=== PATIENT | female | born 1935 | race Caucasian/White ===

== ENCOUNTER → 2016-11-02 | Outpatient (CLI) | payer MEDICARE, OTHER, MEDICAID ==
[~2016-11-02] MED LIST: AC500T PO; ACID1TAB PO; ASCO100083 PO; ASCO500T20 PO; ASP325T; ASPI-875 PO; ATRV10T PO; AZIT250T81 PO; Albuterol Sulfate INH; C250T PO; CALC-656 PO; CALC-687 PO; CALC-80 PO; CEFD300C3 PO; CEPH500C PO; CETI10CA PO; CETI1TAB61 PO; CHOL400T29 PO; CHOL400T40 PO; CLIN300C3 PO; COUMADIN; CPR500T PO; CTLP20T PO; CTRZ10T; DABI150C PO; DABI150C5 PO; DABI75CA3 PO; DGX.25T PO; DILT120C PO; DILT120C54 PO; DILTIAZEM HCL TOP; DLT120CCR; FEXO180T84 PO; FISH OIL 1,2001 EAC1 PO; GARL200T PO; GARLIC 1000MG PO; HYDR-34 PO; HYDR-757 PO; IBUP-15 PO; LACT1CAP62 PO; LACT1CAP64 PO; LORA10TA7 PO; MEMA28CA PO; METO25TA PO; METR500T PO; MTR500T PO; MULT-963 PO; MULT1TAB63; OMG1KC; OMG1KC PO; PNT40TEC PO; POTA10CA43 PO; POTA10TA86 PO; SULF-222 PO; VALA500T4 PO; VITAMIN C 1000MG PO; WRF3T; [UNRECOGNIZED DRUG - CODE] PO; [UNRECOGNIZED DRUG - OTHER]; meclizine; pradaxa PO
[2016-11-02 08:04] LABS: BILIRUBIN,URINE NEGATIVE (NEGATIVE); KETONES,URINE 1+ (NEGATIVE); LEUKOCYTE ESTERASE ,URINE 1+ (NEGATIVE); NITRITE,URINE NEGATIVE (NEGATIVE); PH,URINE 5 (5-9); PROTEIN,URINE NEGATIVE (NEGATIVE); UROBILINOGEN,URINE 1 MG/DL (NORMAL)
[2016-11-02 08:19] LABS: CALCIUM OXALATE CRYSTALS,UR RARE /LPF; SQUAMOUS EPITHELIAL CELL,UR 25-50 /HPF
== END ==
LOC: CVS 07:54
PROVIDERS: ATTEND Family Medicine
DX: N39.0 Urinary tract infection, site not specified (principal)
CPT/HCPCS: 81000; 87088

== ENCOUNTER 2016-11-28 19:47 | Emergency (ER) | payer MEDICARE, OTHER, MEDICAID ==
[~2016-11-28] VITALS: Ht 152.4 cm; Wt 59.0 kg
--- NOTE | 2016-11-28 20:35 | Diagnostic Imaging Report ---
INDICATION: Fall with shoulder pain. Previous arthroplasty. FINDINGS: Humeral head component is in good position and in good alignment with the glenoid. Side plate with bone screws present on the humeral shaft with no evidence of hardware failure. There are no acute fractures. AC joints in good alignment with degenerative changes. IMPRESSION: Postoperative changes right shoulder with arthroplasty present. No dislocations or acute bony abnormalities. Dictated by: Dictated on workstation # [id number]
--- NOTE | 2016-11-28 21:57 | ED Fall/Injury ---
General Chief Complaint: Upper Extremity Stated Complaint: FALL Nursing Triage Note: PT TO ED 7 W/ C/O RT SHOULDER PAIN ONSET AFTER FALLING AT [facility] DINING ROOM. PER STAFF, UNWITNESS FALL AIDE HAD HER BACK TO PT WHILE SHE WAS ON THE COMPUTER. NO OTHER C/O VOICED Allergies and Home Medications Allergies Coded Allergies: No Known Drug Allergies (Verified , 12/08/14) Home Medications Acidophilus/Bulgaricus 1 Tab.chew Tab.chew, 1 TAB.CHEW PO Q8H, #30 Prescribed by: SOWMYA LOZA on 12/14/14927 Ascorbic Acid 250 Mg Tab, 250 MG PO DAILY for 0 Days Prescribed by: AMBER BLOOM on 12/08/141819 Atorvastatin Calcium 10 Mg Tablet, 10 MG PO HS, (Reported) Azithromycin 250 Mg Tablet, 250 MG PO DAILY, #5 Prescribed by: SOWMYA LOZA on 12/14/14927 Cefdinir 300 Mg Capsule, 1 EACH PO BID, #14 Prescribed by: SOWMYA LOZA on 12/14/14927 Cholecalciferol 400 Unit Tablet, 400 UNIT PO DAILY for 0 Days Prescribed by: AMBER BLOOM on 12/08/141819 Citalopram Hydrobromide 20 Mg Tab, 20 MG PO DAILY, (Reported) Dabigatran Etexilate Mesylate 150 Mg Capsule, 150 MG PO BID, #0 Prescribed by: SOWMYA LOZA on 12/14/14927 Digoxin 0.25 Mg Tab, 0.25 MG PO DAILY, (Reported) Diltiazem Hcl 120 Mg Cap.sr.24h, 120 MG PO DAILY, (Reported) Hydrocodone Bit/Acetaminophen 1 Ea Tablet, 1-2 EA PO Q6H PRN for PAIN, #30 Prescribed by: SOWMYA LOZA on 12/14/14927 Lactobacillus Acidophilus 1 Each Capsule, 1 EACH PO DAILY for 0 Days Prescribed by: AMBER BLOOM on 12/08/141819 Metoprolol Succinate 25 Mg Tab.sr.24h, 25 MG PO DAILY, (Reported) Multivitamin 1 Each Tablet, 1 TAB PO DAILY, (Reported) [place]-3 Fatty Acids/Fish Oil 1 Each Capsule, 1,200 MG PO DAILY, (Reported) Pantoprazole Sod 40 Mg Tab, 40 MG PO BID@07,17, #60 Prescribed by: SOWMYA LOZA on 10/09/14 0909 Potassium Chloride 10 Meq Tablet.sa, 10 MEQ PO DAILY, (Reported) Valacyclovir Hcl 500 Mg Tablet, 500 MG PO DAILY, (Reported) [Albuterol Sulfate] 2.5 MG/3 ML NEBU, 2.5 MG INH RTTID, #21 Prescribed by: SOWMYA LOZA on 12/14/14 0928 Past Dtbuedh-Cclene-Qulkww Hx Patient Social History Alcohol Use: Denies Use Recreational Drug Use: No Smoking Status: Never a Smoker Type Used: Cigarettes 2nd Hand Smoke Exposure: No Recent Foreign Travel: No Contact w/Someone Who Travel: No Recent Infectious Disease Expo: No Recent Hopitalizations: No Immunizations Up To Date Date of Pneumonia Vaccine: Feb 02, 2014 Date of Influenza Vaccine: Mar 28, 2014 Seasonal Allergies Seasonal Allergies: Yes Surgeries HX Surgeries: Yes (CATARACTS, SHOULDER, ARM SURGERY) Surgeries: Gallbladder, Orthopedic Respiratory Hx Respiratory Disorders: Yes (SHOULD WEAR HOME O2 BUT DOESN'T) Cardiovascular Hx Cardiac Disorders: Yes Cardiac Disorders: Atrial Fibrillation, Hypertension Neurological Hx Neurological Disorders: Yes Neurological Disorders: Dementia Reproductive System Hx Reproductive Disorders: No Sexually Transmitted Disease: No HIV/AIDS: No Female Reproductive Disorders: Denies Genitourinary Hx Genitourinary Disorders: No Gastrointestinal Hx Gastrointestinal Disorders: Yes (GALLBLADDER REMOVED 2008) Gastrointestinal Disorders: C-Diff Musculoskeletal Hx Musculoskeletal Disorders: Yes (FX DOMI) Musculoskeletal Disorders: Arthritis, Fractures Endocrine Hx Endocrine Disorders: No HEENT HX ENT Disorders: Yes (CATARACTS REMOVED 2011) HEENT Disorders: Cataract Loss of Vision: Denies Hearing Impairment: Hard of Hearing Cancer Hx Cancer: Yes Cancer: Melanoma Psychosocial Hx Psychiatric Problems: Yes (DEPRESSION FOLLOWING LOSS OF ) Behavioral Health Disorders: Depression Integumentary HX Skin/Integumentary Disorder: Yes (SHINGLES) Blood Transfusions Hx Blood Disorders: No Adverse Reaction to a Blood Tr: No Family Medical History Significant Family History: Heart Disease, Cancer, CAD Over 55 Years Old, Hypertension Family Medial History: Arthritis (DAUGHTER) Cancer 09 BROTHER (LUNG CANCER) Completed stroke (DAUGHTER ) Family history: Cardiovascular disease 03 FATHER 03 MOTHER Family history: Diabetes mellitus 03 MOTHER Headache disorder Hypercholesterolemia (DAUGHTER ) Hypertension (DAUGHTER ) Infertility (DAUGHTER ) Myocardial infarction 03 FATHER Severe allergy (DAUGHTER ) Physical Exam Vital Signs Vital Sign - Last 12Hours 11/28/16 19:48 Temp 97.4 Pulse 63 Resp 16 B/P (MAP) 102/59 Pulse Ox 94 O2 Delivery Room Air Capillary Refill : Less Than 3 Seconds Progress/Results/Core Measures Results/Orders My Orders Orders - GLORIA ERNST DO Shoulder, Right, 3 Views (11/28/16 20:06) Vital Signs/I&O Vital Sign - Last 12Hours 11/28/16 19:48 Temp 97.4 Pulse 63 Resp 16 B/P (MAP) 102/59 Pulse Ox 94 O2 Delivery Room Air Blood Pressure Mean: 73 Departure Impression Impression: Primary Impression: Contusion of right shoulder Additional Impression: Fall Disposition: 01 HOME, SELF-CARE Condition: Stable Departure-Patient Inst. Decision time for Depature: 21:55 Referrals: SOWMYA LOZA MD (PCP/Family) Primary Care Physician Patient Instructions: Contusion (DC) Add. Discharge Instructions: All discharge instructions reviewed with patient and/or family. Voiced understanding. RECOMMEND 1000 mg OF TYLENOL EVERY 6 HOURS NEEDED FOR SHOULDER PAIN. GLORIA ERNST DO Nov 28, 2016 21:57
[2016-11-28] MEDS ORDERED: ACETAMINOPHEN 500 MG TAB (TYLENOL) ONE (22:22)
[2016-11-28 22:28] VITALS: BP 122/67
== END 2016-11-28 22:28 | disposition home or self-care (01) ==
LOC: EDUNIT# 19:47 → ER 19:48
DX: S40.011A Contusion of right shoulder, initial encounter (principal); I48.2 Chronic atrial fibrillation; I10 Essential (primary) hypertension; F03.90 Unspecified dementia, unspecified severity, without behavioral disturbance, psychotic disturbance, mood disturbance, and anxiety; W01.0XXA Fall on same level from slipping, tripping and stumbling without subsequent striking against object, initial encounter; Y92.009 Unspecified place in unspecified non-institutional (private) residence as the place of occurrence of the external cause; Y99.8 Other external cause status
CPT/HCPCS: 73030; 99283

== ENCOUNTER 2017-01-18 09:25 | Emergency (ER) | payer MEDICARE, OTHER, MEDICAID ==
[~2017-01-18] VITALS: Ht 157.5 cm; Wt 65.8 kg
[2017-01-18] MEDS ORDERED: NS IV 1000 ML 1,000 ML IV ONE (09:48)
[2017-01-18 10:09] LABS: BASOPHILS % (AUTO) 0 % (0-10); EOSINOPHILS # (AUTO) 0.2 10^3/uL (0.0-0.3); EOSINOPHILS % (AUTO) 2 % (0-10); LYMPHOCYTES # (AUTO) 2.1 X 10^3 (1.0-4.0); LYMPHOCYTES % (AUTO) 18 % (12-44); MEAN CORPUSCULAR HEMOGLOBIN 29 PG (25-34); MEAN CORPUSCULAR HGB CONC 31 G/DL (32-36); MEAN CORPUSCULAR VOLUME 96 FL (80-99); MEAN PLATELET VOLUME 9.8 FL (7.4-10.4); MONOCYTES # (AUTO) 0.9 X 10^3 (0.0-1.0); MONOCYTES % (AUTO) 7 % (0-12); NEUTROPHILS # (AUTO) 8.5 X 10^3 (1.8-7.8); NEUTROPHILS % (AUTO) 73 % (42-75); PLATELET COUNT 302 10^3/uL (130-400); RED BLOOD COUNT 3.44 10^6/uL (4.35-5.85); RED CELL DISTRIBUTION WIDTH 14.5 % (10.0-14.5); WHITE BLOOD COUNT 11.7 10^3/uL (4.3-11.0)
[2017-01-18 10:30] LABS: ALANINE AMINOTRANSFERASE 8 U/L (0-55); ALBUMIN 3.7 GM/DL (3.2-4.5); ANION GAP 9 MMOL/L (5-14); ASPARTATE AMINO TRANSFERASE 9 U/L (5-34); BILIRUBIN,TOTAL 0.3 MG/DL (0.1-1.0); BLOOD UREA NITROGEN 33 MG/DL (7-18); BUN/CREATININE RATIO 41; CALCIUM 8.8 MG/DL (8.5-10.1); CARBON DIOXIDE 28 MMOL/L (21-32); CHLORIDE 107 MMOL/L (98-107); CREATININE SERUM 0.81 MG/DL (0.60-1.30); GFR ESTIMATED > 60; GLUCOSE 89 MG/DL (70-105); MAGNESIUM 2.3 MG/DL (1.8-2.4); POTASSIUM 4.2 MMOL/L (3.6-5.0); SODIUM 144 MMOL/L (135-145); TOTAL PROTEIN 6.1 GM/DL (6.4-8.2)
--- NOTE | 2017-01-18 10:40 | ED Fall/Injury ---
General Chief Complaint: Trauma-Non Activation Stated Complaint: FALL HIT BACK OF HEAD Nursing Triage Note: via [facility] staff reports pt had a fall at 0815. pt reported to staff at 0830 that she could not see. staff reports pt fell backwards and hit head on floor. pt denies loss of vision upon arrival but also has advanced dementia according to [facility] staff. Source: patient Exam Limitations: no limitations History of Present Illness Time seen by provider: 10:00 Initial Comments Here with fall at long term this morning. Staff reports that she fell backwards and hit her head. Apparently had a report of vision loss but none noted on arrival. Patient has advanced dementia and difficult exam and patient unable to provide any history. Arrives via wheelchair. Abrasion to posterior scalp. Occurred: this morning Severity: moderate Injuries/Pain Location: head Context: unknown Loss of Consciousness: no loss of consciousness Associated Symptoms (Fall): Confusion (chronic), No Nausea/Vomiting, No Shortness of Air, Vision Changes (reported but not reported now) Allergies and Home Medications Allergies Coded Allergies: No Known Drug Allergies (Verified , 12/08/14) Home Medications Acidophilus/Bulgaricus 1 Tab.chew Tab.chew, 1 TAB.CHEW PO Q8H, #30 Prescribed by: SOWMYA LOZA on 12/14/14927 Ascorbic Acid 250 Mg Tab, 250 MG PO DAILY for 0 Days Prescribed by: AMBER BLOOM on 12/08/14 182 Atorvastatin Calcium 10 Mg Tablet, 10 MG PO HS, (Reported) Azithromycin 250 Mg Tablet, 250 MG PO DAILY, #5 Prescribed by: SOWMYA LOZA on 12/14/14927 Cefdinir 300 Mg Capsule, 1 EACH PO BID, #14 Prescribed by: SOWMYA LOZA on 12/14/1428 Cholecalciferol 400 Unit Tablet, 400 UNIT PO DAILY for 0 Days Prescribed by: AMBER BLOOM on 12/08/14 182 Citalopram Hydrobromide 20 Mg Tab, 20 MG PO DAILY, (Reported) Dabigatran Etexilate Mesylate 150 Mg Capsule, 150 MG PO BID, #0 Prescribed by: SOWMYA LOZA on 12/14/14927 Digoxin 0.25 Mg Tab, 0.25 MG PO DAILY, (Reported) Diltiazem Hcl 120 Mg Cap.sr.24h, 120 MG PO DAILY, (Reported) Hydrocodone Bit/Acetaminophen 1 Ea Tablet, 1-2 EA PO Q6H PRN for PAIN, #30 Prescribed by: SOWMYA LOZA on 12/14/14 0928 Lactobacillus Acidophilus 1 Each Capsule, 1 EACH PO DAILY for 0 Days Prescribed by: AMBER BLOOM on 12/08/14 1820 Metoprolol Succinate 25 Mg Tab.sr.24h, 25 MG PO DAILY, (Reported) Multivitamin 1 Each Tablet, 1 TAB PO DAILY, (Reported) [place]-3 Fatty Acids/Fish Oil 1 Each Capsule, 1,200 MG PO DAILY, (Reported) Pantoprazole Sod 40 Mg Tab, 40 MG PO BID@07,17, #60 Prescribed by: SOWMYA LOZA on 10/09/14 0909 Potassium Chloride 10 Meq Tablet.sa, 10 MEQ PO DAILY, (Reported) Valacyclovir Hcl 500 Mg Tablet, 500 MG PO DAILY, (Reported) [Albuterol Sulfate] 2.5 MG/3 ML NEBU, 2.5 MG INH RTTID, #21 Prescribed by: SOWMYA LOZA on 12/14/1428 Constitutional: see HPI, No chills, No fever Eyes: See HPI Ears, Nose, Mouth, Throat: no symptoms reported Gastrointestinal: No diarrhea, No nausea, No vomiting Skin: no symptoms reported Psychiatric/Neurological: Headache Other Unable to complete review of systems due to advanced dementia. Past Fpcpsec-Dfqkcp-Ubaxth Hx Patient Social History Alcohol Use: Denies Use Recreational Drug Use: No Smoking Status: Unknown if Ever Smoked Type Used: Cigarettes 2nd Hand Smoke Exposure: No Recent Foreign Travel: No Contact w/Someone Who Travel: No Recent Infectious Disease Expo: No Recent Hopitalizations: No Immunizations Up To Date Date of Pneumonia Vaccine: Feb 02, 2014 Date of Influenza Vaccine: Mar 28, 2014 Seasonal Allergies Seasonal Allergies: Yes Surgeries HX Surgeries: Yes (CATARACTS, SHOULDER, ARM SURGERY) Surgeries: Gallbladder, Orthopedic Respiratory Hx Respiratory Disorders: Yes (SHOULD WEAR HOME O2 BUT DOESN'T) Cardiovascular Hx Cardiac Disorders: Yes Cardiac Disorders: Atrial Fibrillation, Coronary Artery Disease, High Cholesterol, Hypertension Neurological Hx Neurological Disorders: Yes Neurological Disorders: Dementia Reproductive System Hx Reproductive Disorders: No Sexually Transmitted Disease: No HIV/AIDS: No Female Reproductive Disorders: Denies Genitourinary Hx Genitourinary Disorders: No Gastrointestinal Hx Gastrointestinal Disorders: Yes (GALLBLADDER REMOVED 2008) Gastrointestinal Disorders: Gastroesophageal Reflux, C-Diff Musculoskeletal Hx Musculoskeletal Disorders: Yes (FX DOMI) Musculoskeletal Disorders: Arthritis, Fractures Endocrine Hx Endocrine Disorders: No HEENT HX ENT Disorders: Yes (CATARACTS REMOVED 2011) HEENT Disorders: Cataract Loss of Vision: Denies Hearing Impairment: Hard of Hearing Cancer Hx Cancer: Yes Cancer: Melanoma Psychosocial Hx Psychiatric Problems: Yes (DEPRESSION FOLLOWING LOSS OF ) Behavioral Health Disorders: Depression Integumentary HX Skin/Integumentary Disorder: Yes (SHINGLES) Blood Transfusions Hx Blood Disorders: No Adverse Reaction to a Blood Tr: No Reviewed Nursing Assessment Reviewed/Agree w Nursing PMH: Yes Family Medical History Significant Family History: Heart Disease, Cancer, CAD Over 55 Years Old, Hypertension Other Per records. Family Medial History: Arthritis (DAUGHTER) Cancer 09 BROTHER (LUNG CANCER) Completed stroke (DAUGHTER ) Family history: Cardiovascular disease 03 FATHER 03 MOTHER Family history: Diabetes mellitus 03 MOTHER Headache disorder Hypercholesterolemia (DAUGHTER ) Hypertension (DAUGHTER ) Infertility (DAUGHTER ) Myocardial infarction 03 FATHER Severe allergy (DAUGHTER ) Physical Exam Vital Signs Vital Sign - Last 12Hours 01/18/17 10:22 Temp 97.5 Pulse 69 Resp 18 B/P (MAP) 85/33 Pulse Ox 98 O2 Delivery Room Air Capillary Refill : Less Than 3 Seconds General Appearance: WD/WN, no apparent distress HEENT: PERRL/EOMI, pharynx normal Neck: full range of motion, supple Cardiovascular: regular rate, rhythm, no murmur Respiratory: lungs clear, normal breath sounds Gastrointestinal: non tender, soft Back: normal inspection, no CVA tenderness, no vertebral tenderness Extremities: non-tender, normal inspection Neurologic/Psychiatric: alert, other (follows some commands. Eyes open and and tracks to examiner. At baseline.) Skin: normal color, warm/dry, other (no obvious injury or skin breakdown to the back of the head. There is scalp hematoma noted posteriorly.) Roddy Coma Score Best Eye Response: (4) Open Spontaneously Best Verbal Response: (4) Confused Conversation (baseline) Best Motor Response: (6) Obeys Commands Progress/Results/Core Measures Results/Orders Lab Results Laboratory Tests Test 01/18/17 10:01 01/18/17 11:19 Range/Units White Blood Count 11.7 H 4.3-11.0 10^3/uL Red Blood Count 3.44 L 4.35-5.85 10^6/uL Hemoglobin 10.1 L 11.5-16.0 G/DL Hematocrit 33 L 35-52 % Mean Corpuscular Volume 96 80-99 FL Mean Corpuscular Hemoglobin 29 25-34 PG Mean Corpuscular Hemoglobin Concent 31 L 32-36 G/DL Red Cell Distribution Width 14.5 10.0-14.5 % Platelet Count 302 130-400 10^3/uL Mean Platelet Volume 9.8 7.4-10.4 FL Neutrophils (%) (Auto) 73 42-75 % Lymphocytes (%) (Auto) 18 12-44 % Monocytes (%) (Auto) 7 0-12 % Eosinophils (%) (Auto) 2 0-10 % Basophils (%) (Auto) 0 0-10 % Neutrophils # (Auto) 8.5 H 1.8-7.8 X 10^3 Lymphocytes # (Auto) 2.1 1.0-4.0 X 10^3 Monocytes # (Auto) 0.9 0.0-1.0 X 10^3 Eosinophils # (Auto) 0.2 0.0-0.3 10^3/uL Basophils # (Auto) 0.0 0.0-0.1 10^3/uL Sodium Level 144 135-145 MMOL/L Potassium Level 4.2 3.6-5.0 MMOL/L Chloride Level 107 98-107 MMOL/L Carbon Dioxide Level 28 21-32 MMOL/L Anion Gap 9 5-14 MMOL/L Blood Urea Nitrogen 33 H 7-18 MG/DL Creatinine 0.81 0.60-1.30 MG/DL Estimat Glomerular Filtration Rate > 60 BUN/Creatinine Ratio 41 Glucose Level 89 70-105 MG/DL Calcium Level 8.8 8.5-10.1 MG/DL Magnesium Level 2.3 1.8-2.4 MG/DL Total Bilirubin 0.3 0.1-1.0 MG/DL Aspartate Amino Transf (AST/SGOT) 9 5-34 U/L Alanine Aminotransferase (ALT/SGPT) 8 0-55 U/L Alkaline Phosphatase 42 40-136 U/L Total Protein 6.1 L 6.4-8.2 GM/DL Albumin 3.7 3.2-4.5 GM/DL Digoxin Level 1.96 0.80-2.00 NG/ML Urine Color YELLOW Urine Clarity CLEAR Urine pH 5 5-9 Urine Specific Dix 1.020 1.016-1.022 Urine Protein 1+ H NEGATIVE Urine Glucose (UA) NEGATIVE NEGATIVE Urine Ketones NEGATIVE NEGATIVE Urine Nitrite NEGATIVE NEGATIVE Urine Bilirubin 1+ H NEGATIVE Urine Urobilinogen 1 NORMAL MG/DL Urine Leukocyte Esterase 1+ H NEGATIVE Urine RBC (Auto) NEGATIVE NEGATIVE Urine RBC NONE /HPF Urine WBC RARE /HPF Urine Squamous Epithelial Cells RARE /HPF Urine Crystals NONE /LPF Urine Bacteria NEGATIVE /HPF Urine Casts PRESENT /LPF Urine Hyaline Casts 25-50 H /LPF Urine Mucus SMALL H /LPF Urine Culture Indicated NO My Orders Orders - JHON MATTHEWS MD Cbc With Automated Diff (01/18/17 09:48) Comprehensive Metabolic Panel (01/18/17 09:48) Ct Head Wo (01/18/17 09:48) Saline Lock/Iv-Start (01/18/17 09:48) Monitor-Rhythm Ecg Trace Only (01/18/17 09:48) Ns Iv 1000 Ml (Sodium Chloride 0.9%) (01/18/17 09:48) Digoxin (01/18/17 09:48) Magnesium (01/18/17 09:48) Ua Culture If Indicated (01/18/17 09:48) Medications Given in ED Current Medications Medications Dose Ordered Sig/Katarzyna Route Start Time Stop Time Status Last Admin Dose Admin Sodium Chloride 1,000 ml @ 0 mls/hr Q0M ONCE IV 01/18/17 09:48 01/18/17 09:51 DC 01/18/17 10:01 0 MLS/HR Vital Signs/I&O Vital Sign - Last 12Hours 01/18/17 01/18/17 10:22 10:22 Temp 97.5 97.5 Pulse 69 69 Resp 18 16 B/P (MAP) 85/33 98/43 (61) Pulse Ox 98 94 O2 Delivery Room Air Blood Pressure Mean: 50 Progress Note : Progress Note Seen and evaluated. CT head ordered. Labs and UA ordered due to unknown reason for fall and patient has had some labile blood pressures here. Monitor patient. 1230: No acute findings. Discharged home with return precautions. Patient verbalize understanding instructions and agreement with plan. Tetanus was updated as there is question of abrasion to the posterior scalp although that does not seem to be noted. Tetanus is unknown so we will go ahead and updated. Diagnostic Imaging Diagonstic Imaging: CT Plain Films/CT/US/NM/MRI: head Comments VIA [facility]. [place], [place] NAME: NAIMA BEAN REC#: [id number] PT STATUS: REG ER : 1935 PHYSICIAN: JHON MATTHEWS MD ADMIT DATE: 01/18/17/ER Draft Date of Exam:01/18/17 CT HEAD WO PROCEDURE: CT head without contrast. TECHNIQUE: Multiple contiguous axial images were obtained through the brain without the use of intravenous contrast. INDICATION: Fall. FINDINGS: There is no intracranial hemorrhage. There is a periventricular and deep white hypodensities compatible with chronic microvascular ischemic changes. No hydrocephalus. No extra-axial fluid collection. The calvarium appears grossly unremarkable. There is a small focus of a soft tissue contusion abutting the outer table in the right parietal region. IMPRESSION: 1. No intracranial hemorrhage. 2. Small deep scalp soft tissue contusion in the right parietal region. Dictated on workstation # [id number] Dict: 01/18/17 1029 Trans: 01/18/17 1041 [facility] [id number] Interpreted by: NARCISA DREW MD Electronically signed by: Departure Impression Impression: Primary Impression: Head injury Qualified Codes: S09.90XA - Unspecified injury of head, initial encounter Disposition: 01 HOME, SELF-CARE Condition: Stable Departure-Patient Inst. Decision time for Depature: 12:39 Referrals: SOWMYA LOZA MD (PCP/Family) Primary Care Physician Patient Instructions: Minor Head Injury (DC), Concussion, Adult (DC) Add. Discharge Instructions: All discharge instructions reviewed with patient and/or family. Voiced understanding. Continue home medications as directed. Follow-up with your DrHan in a few days for recheck as needed. Return for worsening, fever, vomiting, weakness, breathing problems or other concerns as needed. JHON MATTHEWS MD Jan 18, 2017 10:40
[2017-01-18 10:42] LABS: DIGOXIN 1.96 NG/ML (0.80-2.00)
[2017-01-18 11:27] LABS: KETONES,URINE NEGATIVE (NEGATIVE); LEUKOCYTE ESTERASE ,URINE 1+ (NEGATIVE); NITRITE,URINE NEGATIVE (NEGATIVE); PH,URINE 5 (5-9); PROTEIN,URINE 1+ (NEGATIVE); UROBILINOGEN,URINE 1 MG/DL (NORMAL)
[2017-01-18 11:36] LABS: BILIRUBIN,URINE 1+ (NEGATIVE); HYALINE CASTS, URINE 25-50 /LPF; SQUAMOUS EPITHELIAL CELL,UR RARE /HPF; WBC,URINE RARE /HPF
[2017-01-18] MEDS ORDERED: TETANUS,DIPTH,PERTUSS P/F (BOOSTRIX) 0.5 ML VIAL IM STA (12:30)
[2017-01-18 15:13] VITALS: BP 109/64
--- OUTSIDE RECORDS SUMMARY | 2017-01-28 11:54 | XMS REPORT | Continuity of Care Document ---
Author Author [facility] Organization [facility] Address Unknown Phone Unavailable Allergies Active Description Code Type Severity Reaction Onset Reported/Identified Relationship to Patient Clinical Status Yes No Known Drug Allergies [id number] Drug Allergy Unknown N/ A 12/08/2014 Medications Problems Date Dx Coded Attending Type Code Diagnosis Diagnosed By 03/19/2010 Ot 401.9 03/19/2010 Ot 726.2 03/19/2010 Ot 840.8 03/19/2010 Ot E000.8 03/19/2010 Ot E001.0 03/19/2010 Ot E880.9 03/19/2010 Ot V57.1 07/13/2010 Ot 401.9 HYPERTENSION NOS 07/13/2010 Ot 427.31 ATRIAL FIBRILLATION 07/13/2010 Ot 719.41 JOINT PAIN-SHLDER 07/13/2010 Ot V57.1 PHYSICAL THERAPY NEC 07/13/2010 Ot V58.43 AFTERCARE POST SURGERY INJURY/TRAUMA 08/21/2010 Ot 401.9 HYPERTENSION NOS 08/21/2010 Ot 427.31 ATRIAL FIBRILLATION 08/21/2010 Ot 719.41 JOINT PAIN-SHLDER 08/21/2010 Ot V57.1 PHYSICAL THERAPY NEC 08/21/2010 Ot V58.43 AFTERCARE POST SURGERY INJURY/TRAUMA 03/09/2011 Ot V57.1 PHYSICAL THERAPY NEC 03/09/2011 Ot V58.43 AFTERCARE POST SURGERY INJURY/TRAUMA 05/14/2011 Ot V57.1 PHYSICAL THERAPY NEC 05/14/2011 Ot V58.43 AFTERCARE POST SURGERY INJURY/TRAUMA 02/17/2012 Ot 427.31 ATRIAL FIBRILLATION 02/17/2012 Ot V58.69 OTH MED,LT,CURRENT USE 07/07/2012 Ot 244.9 HYPOTHYROIDISM NOS 07/07/2012 Ot 272.4 HYPERLIPIDEMIA NEC/NOS 07/07/2012 Ot 276.51 DEHYDRATION 07/07/2012 Ot 298.9 PSYCHOSIS NOS 07/07/2012 Ot 401.9 HYPERTENSION NOS 07/07/2012 Ot 414.01 CORONARY ATHEROSCLEROSIS OF [place] CORON 07/07/2012 Ot 427.31 ATRIAL FIBRILLATION 07/07/2012 Ot 599.0 URIN TRACT INFECTION NOS 07/07/2012 Ot 715.90 OSTEOARTHROS NOS-UNSPEC 07/29/2012 Ot 327.23 OBSTRUCTIVE SLEEP APNEA (ADULT) (PEDIATR 07/29/2012 Ot 327.51 PERIODIC LIMB MOVEMENT DISORDER 02/18/2013 SOWMYA LOZA MD Ot 276.1 HYPOSMOLALITY 02/18/2013 SOWMYA LOZA MD Ot 401.9 HYPERTENSION NOS 02/18/2013 SOWMYA LOZA MD Ot 427.31 ATRIAL FIBRILLATION 02/18/2013 SOWMYA LOZA MD Ot 435.9 TRANS CEREB ISCHEMIA NOS 02/18/2013 SOWMYA LOZA MD Ot 522.5 PERIAPICAL ABSCESS 02/18/2013 SOWMYA LOZA MD Ot 564.00 UNSPEC CONSTIPATION 02/18/2013 SOWMYA LOZA MD Ot 599.0 URIN TRACT INFECTION NOS 05/16/2013 ISAIAH LUNDBERG MD Ot 327.23 OBSTRUCTIVE SLEEP APNEA (ADULT) (PEDIATR 05/16/2013 TOÑO SIERRA, ISAIAH Graves Ot 327.51 PERIODIC LIMB MOVEMENT DISORDER 07/04/2013 SOWMYA LOZA MD Ot 008.45 INTESTINAL INFECTION DUE TO CLOSTRIDIUM 07/04/2013 SOWMYA LOZA MD Ot 041.49 OTHER AND UNSPECIFIED ESCHERICHIA COLI [ 07/04/2013 SOWMYA LOZA MD Ot 041.7 PSEUDOMONAS INFECT NOS 07/04/2013 SOWMYA LOZA MD Ot 276.51 DEHYDRATION 07/04/2013 SOWMYA LOZA MD Ot 276.8 HYPOPOTASSEMIA 07/04/2013 SOWMYA LOZA MD Ot 401.9 HYPERTENSION NOS 07/04/2013 SOWMYA LOZA MD Ot 427.31 ATRIAL FIBRILLATION 07/04/2013 SOWMYA LOZA MD Ot 599.0 URIN TRACT INFECTION NOS 07/04/2013 SOWMYA LOZA MD Ot V10.82 HX-MALIG SKIN MELANOMA 07/04/2013 SOWMYA LOZA MD Ot V60.3 PERSON LIVING ALONE 08/17/2013 SOWMYA LOZA MD Ot 311 DEPRESSIVE DISORDER NEC 08/17/2013 SOWMYA LOZA MD Ot 401.9 HYPERTENSION NOS 08/17/2013 SOWMYA LOZA MD Ot 427.31 ATRIAL FIBRILLATION 08/17/2013 DAGO SIERRA, SOWMYA Roberts Ot 564.00 UNSPEC CONSTIPATION 08/17/2013 DAGO SIERRA, SOWMYA Roberts Ot 565.0 ANAL FISSURE 08/17/2013 DAGO SIERRA, SOWMYA Roberts Ot V58.61 ANTICOAGULANTS,LT,CURRENT USE 08/18/2013 EDGARD DO, ANURADHA K Ot 565.0 ANAL FISSURE 08/18/2013 EDGARD DO, ANURADHA K Ot 569.3 RECTAL ANAL HEMORRHAGE 08/22/2013 MAURICE HICKS BISQUE KILN DRAWER Ot 327.23 OBSTRUCTIVE SLEEP APNEA (ADULT) ( PEDIATR 06/29/2014 VILMA DIAZ COUPLER Ot 599.0 URIN TRACT INFECTION NOS 06/29/2014 VILMA DIAZ COUPLER Ot 719.45 JOINT PAIN-PELVIS 06/29/2014 VILMA DIAZ COUPLER Ot 724.4 LUMBOSACRAL NEURITIS NOS 08/08/2014 ALEJANDRO MATHIS RADIATION PROTECTION ENGINEER Ot 720.2 08/08/2014 ALEJANDRO MATHIS RADIATION PROTECTION ENGINEER Ot V57.1 08/17/2014 ALEJANDRO MATHIS RADIATION PROTECTION ENGINEER Ot 720.2 08/17/2014 ALEJANDRO MATHIS RADIATION PROTECTION ENGINEER Ot V57.1 08/21/2014 DAGO SIERRA, SOWMYA Roberts Ot 294.20 08/21/2014 SOWMYA LOZA MD Ot 331.9 08/22/2014 ALEJANDRO MATHIS RADIATION PROTECTION ENGINEER Ot 720.2 08/22/2014 ALEJANDRO MATHIS RADIATION PROTECTION ENGINEER Ot V57.1 10/04/2014 ALEJANDRO MATHIS RADIATION PROTECTION ENGINEER Ot 724.3 10/05/2014 SOWMYA LOZA MD Ot 294.20 10/05/2014 SOWMYA LOZA MD Ot 331.9 10/05/2014 ALEJANDRO MATHIS RADIATION PROTECTION ENGINEER Ot 724.3 10/05/2014 SOWMYA LOZA MD Ot 787.91 10/05/2014 SOWMYA LOZA MD Ot 788.1 10/08/2014 SOWMYA LOZA MD Ot 294.20 10/08/2014 SOWMYA LOZA MD Ot 331.9 10/08/2014 ALEJANDRO MATHIS RADIATION PROTECTION ENGINEER Ot 724.3 10/08/2014 SOWMYA LOZA MD Ot 787.91 10/08/2014 DAGO SIERRA, SOWMYA A Ot 788.1 10/08/2014 DAGO SIERRA, SOWMYA A Ot 272.0 10/08/2014 DAGO SIERRA, SOWMYA A Ot 311 10/08/2014 DAGO SIERRA, SOWMYA A Ot 366.9 10/08/2014 DAGO SIERRA, SOWMYA A Ot 401.9 10/08/2014 DAGO SIERRA, SOWMYA A Ot 427.31 10/08/2014 DAGO SIERRA, SOWMYA A Ot 455.2 10/08/2014 DAGO SIERRA, SOWMYA A Ot 716.90 10/08/2014 DAGO SIERRA, SOWMYA A Ot 780.93 10/08/2014 DAGO SIERRA, SOWMYA A Ot 787.91 10/08/2014 DAGO SIERRA, SOWMYA A Ot V10.82 10/09/2014 DAGO SIERRA, SOWMYA A Ot 787.91 DIARRHEA 10/09/2014 DAGO SIERRA, SOWMYA A Ot 788.1 DYSURIA 10/09/2014 DAGO SIERRA, SOWMYA Roberts Ot 272.0 PURE HYPERCHOLESTEROLEM 10/09/2014 DAGO SIERRA, SOWMYA A Ot 311 DEPRESSIVE DISORDER NEC 10/09/2014 DAGO SIERRA, SOWMYA A Ot 366.9 CATARACT NOS 10/09/2014 DAGO SIERRA, SOWMYA Roberts Ot 401.9 HYPERTENSION NOS 10/09/2014 DAGO SIERRA, SOWMYA A Ot 427.31 ATRIAL FIBRILLATION 10/09/2014 DAGO SIERRA, SOWMYA Roberts Ot 455.2 INT HEMRRHOID W COMP NEC 10/09/2014 DAGO SIERRA, SOWMYA Roberts Ot 578.9 GASTROINTEST HEMORR NOS 10/09/2014 DAGO SIERRA, SOWMYA A Ot 716.90 ARTHROPATHY NOS-UNSPEC 10/09/2014 DAGO SIERRA, SOWMYA A Ot 780.93 MEMORY LOSS 10/09/2014 DAGO SIERRA, SOWMYA Roberts Ot 787.91 DIARRHEA 10/09/2014 SOWMYA LOZA MD Ot V10.82 HX-MALIG SKIN MELANOMA 10/09/2014 SOWMYA LOZA MD Ot V46.2 SUPPLEMENTAL OXYGEN 10/24/2014 ALEJANDRO MATHIS RADIATION PROTECTION ENGINEER Ot 724.3 10/29/2014 ALEJANDRO MATHIS RADIATION PROTECTION ENGINEER Ot 724.3 10/30/2014 JADA MATHISHANIE Damari RADIATION PROTECTION ENGINEER Ot 720.2 10/30/2014 DELFINA ALEJANDRO Damari RADIATION PROTECTION ENGINEER Ot V57.1 11/02/2014 FLAKO SIERRA, CHERYL Ot 455.0 INT HEMORRHOID W/O COMPL 11/02/2014 CHERYL ARRIOLA MD Ot 455.3 EXT HEMORRHOID W/O COMPL 11/02/2014 CHERYL ARRIOLA MD Ot 569.3 RECTAL ANAL HEMORRHAGE 11/02/2014 CHERYL ARRIOLA MD Ot 787.91 DIARRHEA 11/04/2014 DELFINA ALEJANDRO M RADIATION PROTECTION ENGINEER Ot 720.2 SACROILIITIS NEC 11/04/2014 ALEJANDRO MATHIS RADIATION PROTECTION ENGINEER Ot V57.1 PHYSICAL THERAPY NEC 11/06/2014 ALEJANDRO MATHIS RADIATION PROTECTION ENGINEER Ot 720.2 11/06/2014 DELFINA ALEJANDRO M RADIATION PROTECTION ENGINEER Ot V57.1 11/06/2014 ALEJANDRO MATHIS RADIATION PROTECTION ENGINEER Ot 720.2 11/06/2014 ALEJANDRO MATHIS RADIATION PROTECTION ENGINEER Ot V57.1 11/07/2014 JADA MATHISHANJAVID Wetzel RADIATION PROTECTION ENGINEER Ot 720.2 11/07/2014 DELFINA ALEJANDRO Damari RADIATION PROTECTION ENGINEER Ot V57.1 11/26/2014 DENISHA VENTURA APRN Ot 786.2 12/07/2014 GLORIA ERNST DO Ot 298.9 PSYCHOSIS NOS 12/07/2014 GLORIA ERNST DO Ot 401.9 HYPERTENSION NOS 12/07/2014 GLORIA ERNST DO Ot 427.31 ATRIAL FIBRILLATION 12/07/2014 GLORIA ERNST DO Ot 780.60 FEVER, UNSPECIFIED 12/07/2014 GLORIA ERNST DO Ot 780.79 OTH MALAISE FATIGUE 12/07/2014 GLORIA ERNST DO Ot V58.69 OTH MED,LT,CURRENT USE 12/14/2014 SOWMYA LOZA MD Ot 272.4 HYPERLIPIDEMIA NEC/NOS 12/14/2014 SOWMYA LOZA MD Ot 276.8 HYPOPOTASSEMIA 12/14/2014 SOWMYA LOZA MD Ot 290.40 VASCULAR DEMENTIA, UNCOMPLICATED 12/14/2014 SOWMYA LOZA MD Ot 311 DEPRESSIVE DISORDER NEC 12/14/2014 SOWMYA LOZA MD Ot 327.23 OBSTRUCTIVE SLEEP APNEA (ADULT) ( PEDIATR 12/14/2014 SOWMYA LOZA MD Ot 401.9 HYPERTENSION NOS 12/14/2014 SOWMYA LOZA MD Ot 427.31 ATRIAL FIBRILLATION 12/14/2014 SOWMYA LOZA MD Ot 433.10 CAROTID ARTERY OCCLUSION W O CEREBRAL IN 12/14/2014 SOWMYA LOZA MD Ot 433.30 MULT BILTRAL ARTERY OCCLUSION WO CEREBRA 12/14/2014 SOWMYA LOZA MD Ot 486 PNEUMONIA, ORGANISM NOS 12/14/2014 SOWMYA LOZA MD Ot 491.21 OBSTR CHRONIC BRONCHITIS, W (ACUTE) EXAC 12/14/2014 SOWYMA LOZA MD Ot 716.90 ARTHROPATHY NOS-UNSPEC 12/14/2014 SOWMYA LOZA MD Ot 787.02 NAUSEA ALONE 12/14/2014 SOWMYA LOZA MD Ot 787.60 FULL INCONTINENCE OF FECES 12/14/2014 SOWMYA LOZA MD Ot 788.30 UNSPECIFIED URINARY INCONTINENCE 12/14/2014 SOWMYA LOZA MD Ot V15.81 HX OF PAST NONCOMPLIANCE 12/14/2014 SOWMYA LOZA MD Ot V46.2 SUPPLEMENTAL OXYGEN 12/19/2014 DENISHA VENTURA APRN Ot 786.2 12/31/2014 ALEJANDRO MATHIS Ot 720.2 12/31/2014 ALEJANDRO MATHIS Ot V57.1 01/08/2015 DENISHA VENTURA APRN Ot 786.2 01/09/2015 ALEJANDRO MATHISP Ot 720.2 SACROILIITIS NEC 01/09/2015 ALEJANDRO MATHISP Ot V57.1 PHYSICAL THERAPY NEC 01/30/2015 Ot 401.9 01/30/2015 Ot 427.31 01/30/2015 Ot 715.31 01/30/2015 Ot 719.01 01/30/2015 Ot 959.7 01/30/2015 Ot E000.8 01/30/2015 Ot E849.0 01/30/2015 Ot E888.9 01/30/2015 Ot 427.31 01/30/2015 Ot 786.50 01/30/2015 Ot 427.31 01/30/2015 Ot V58.61 01/30/2015 Ot 427.31 01/30/2015 Ot V58.61 01/30/2015 Ot 427.31 01/30/2015 Ot V58.61 01/30/2015 Ot 427.31 01/30/2015 Ot V58.61 01/30/2015 Ot 427.31 01/30/2015 Ot V58.61 01/30/2015 Ot V58.61 01/30/2015 Ot V58.83 01/30/2015 Ot 401.9 01/30/2015 Ot 416.8 01/30/2015 Ot V49.81 01/30/2015 Ot V76.12 01/30/2015 Ot V82.81 01/30/2015 Ot V64.3 01/30/2015 Ot V76.51 01/30/2015 Ot V72.84 01/30/2015 Ot 427.31 01/30/2015 Ot 786.50 01/30/2015 ANURADHA RENE DO Ot 569.3 01/30/2015 DAGO SIERRA, SOWMYA Roberts Ot 294.20 01/30/2015 DAGO SIERRA, SOWMYA Roberts Ot 331.9 01/30/2015 ALEJANDRO MATHIS Ot 724.3 01/30/2015 FLAKO SIERRA, CHERYL Ot V72.84 01/30/2015 DENISHA VENTURA APRN Ot 786.2 01/30/2015 Ot 401.9 01/30/2015 Ot 427.31 01/30/2015 Ot 715.31 01/30/2015 Ot 719.01 01/30/2015 Ot 959.7 01/30/2015 Ot E000.8 01/30/2015 Ot E849.0 01/30/2015 Ot E888.9 01/30/2015 Ot 427.31 01/30/2015 Ot 786.50 01/30/2015 Ot 427.31 01/30/2015 Ot V58.61 01/30/2015 Ot 427.31 01/30/2015 Ot V58.61 01/30/2015 Ot 427.31 01/30/2015 Ot V58.61 01/30/2015 Ot 427.31 01/30/2015 Ot V58.61 01/30/2015 Ot 427.31 01/30/2015 Ot V58.61 01/30/2015 Ot V58.61 01/30/2015 Ot V58.83 01/30/2015 Ot 401.9 01/30/2015 Ot 416.8 01/30/2015 Ot V49.81 01/30/2015 Ot V76.12 01/30/2015 Ot V82.81 01/30/2015 Ot V64.3 01/30/2015 Ot V76.51 01/30/2015 Ot V72.84 01/30/2015 Ot 427.31 01/30/2015 Ot 786.50 01/30/2015 ANURADHA RENE DO Ot 569.3 01/30/2015 DAGO SIERRA, SOWMYA Roberts Ot 294.20 01/30/2015 DAGO SIERRA, SOWMYA Roberts Ot 331.9 01/30/2015 ALEJANDRO MATHIS RADIATION PROTECTION ENGINEER Ot 724.3 01/30/2015 FLAKO SIERRA, CHERYL Ot V72.84 01/30/2015 DENISHA VENTURA APRN Ot 786.2 12/27/2015 Ot 427.31 ATRIAL FIBRILLATION 12/27/2015 Ot 786.50 CHEST PAIN NOS 12/27/2015 Ot 427.31 ATRIAL FIBRILLATION 12/27/2015 Ot V58.61 ANTICOAGULANTS,LT,CURRENT USE 12/27/2015 Ot 427.31 ATRIAL FIBRILLATION 12/27/2015 Ot V58.61 ANTICOAGULANTS,LT,CURRENT USE 12/27/2015 Ot 427.31 ATRIAL FIBRILLATION 12/27/2015 Ot V58.61 ANTICOAGULANTS,LT,CURRENT USE 12/27/2015 Ot 427.31 ATRIAL FIBRILLATION 12/27/2015 Ot V58.61 ANTICOAGULANTS,LT,CURRENT USE 12/27/2015 Ot 427.31 ATRIAL FIBRILLATION 12/27/2015 Ot V58.61 ANTICOAGULANTS,LT,CURRENT USE 12/27/2015 Ot V58.61 ANTICOAGULANTS,LT,CURRENT USE 12/27/2015 Ot V58.83 ENCOUNTER FOR THERAPEUTIC DRUG MONITORIN 12/27/2015 Ot 401.9 HYPERTENSION NOS 12/27/2015 Ot 416.8 CHR PULMON HEART DIS NEC 12/27/2015 Ot V49.81 ASYMPT POSTMENOPAUSAL STATUS (AGE-RELATE 12/27/2015 Ot V76.12 OTH SCREEN MAMMO-MALIGN NEOPLASM OF [place] 12/27/2015 Ot V82.81 SCREENING FOR OSTEOPOROSIS 12/27/2015 Ot V64.3 NO PROC FOR REASONS NEC 12/27/2015 Ot V76.51 SCREEN MAL NEOP-COLON 12/27/2015 Ot V72.84 EXAM PRE-OPERATIVE NOS 12/27/2015 Ot 427.31 ATRIAL FIBRILLATION 12/27/2015 Ot 786.50 CHEST PAIN NOS 12/27/2015 ANURADHA RENE DO Ot 569.3 RECTAL ANAL HEMORRHAGE 12/27/2015 SOWMYA LOZA MD Ot 294.20 DEMENTIA, UNSPECIFIED, WITHOUT BEHAVIORA 12/27/2015 SOWMYA LOZA MD Ot 331.9 CEREB DEGENERATION NOS 12/27/2015 ALEJANDRO MATHIS RADIATION PROTECTION ENGINEER Ot 724.3 SCIATICA 12/27/2015 CHERYL ARRIOLA MD Ot V72.84 EXAM PRE-OPERATIVE NOS 12/27/2015 DENISHA VENTURA COUPLER Ot 786.2 COUGH 12/27/2015 JHON MATTHEWS MD Ot F03.90 UNSPECIFIED DEMENTIA WITHOUT BEHAVIORAL 12/27/2015 JHON MATTHEWS MD Ot M47.812 SPONDYLOSIS W/O MYELOPATHY OR RADICULOPA 12/27/2015 JHON MATTHEWS MD Ot S01.01XA LACERATION WITHOUT FOREIGN BODY OF SCALP 12/27/2015 JHON MATTHEWS MD Ot S09.90XA UNSPECIFIED INJURY OF HEAD, INITIAL ENCO 12/27/2015 JHON MATTHEWS MD Ot W01.0XXA FALL SAME LEV FROM SLIP/TRIP W/O STRIKE 12/27/2015 JHON MATTHEWS MD Ot Y92.[address] IN [facility] PLACE 12/27/2015 JHON MATTHEWS MD Ot Y99.8 OTHER EXTERNAL CAUSE STATUS 12/27/2015 JHON MATTHEWS MD Ot Z23 ENCOUNTER FOR IMMUNIZATION 12/27/2015 Ot 427.31 ATRIAL FIBRILLATION 12/27/2015 Ot 786.50 CHEST PAIN NOS 12/27/2015 Ot 427.31 ATRIAL FIBRILLATION 12/27/2015 Ot V58.61 ANTICOAGULANTS,LT,CURRENT USE 12/27/2015 Ot 427.31 ATRIAL FIBRILLATION 12/27/2015 Ot V58.61 ANTICOAGULANTS,LT,CURRENT USE 12/27/2015 Ot 427.31 ATRIAL FIBRILLATION 12/27/2015 Ot V58.61 ANTICOAGULANTS,LT,CURRENT USE 12/27/2015 Ot 427.31 ATRIAL FIBRILLATION 12/27/2015 Ot V58.61 ANTICOAGULANTS,LT,CURRENT USE 12/27/2015 Ot 427.31 ATRIAL FIBRILLATION 12/27/2015 Ot V58.61 ANTICOAGULANTS,LT,CURRENT USE 12/27/2015 Ot V58.61 ANTICOAGULANTS,LT,CURRENT USE 12/27/2015 Ot V58.83 ENCOUNTER FOR THERAPEUTIC DRUG MONITORIN 12/27/2015 Ot 401.9 HYPERTENSION NOS 12/27/2015 Ot 416.8 CHR PULMON HEART DIS NEC 12/27/2015 Ot V49.81 ASYMPT POSTMENOPAUSAL STATUS (AGE-RELATE 12/27/2015 Ot V76.12 OTH SCREEN MAMMO-MALIGN NEOPLASM OF [place] 12/27/2015 Ot V82.81 SCREENING FOR OSTEOPOROSIS 12/27/2015 Ot V64.3 NO PROC FOR REASONS NEC 12/27/2015 Ot V76.51 SCREEN MAL NEOP-COLON 12/27/2015 Ot V72.84 EXAM PRE-OPERATIVE NOS 12/27/2015 Ot 427.31 ATRIAL FIBRILLATION 12/27/2015 Ot 786.50 CHEST PAIN NOS 12/27/2015 ANURADHA RENE DO Ot 569.3 RECTAL ANAL HEMORRHAGE 12/27/2015 DAGO SIERRA, SOWMYA Roberts Ot 294.20 DEMENTIA, UNSPECIFIED, WITHOUT BEHAVIORA 12/27/2015 SOWMYA LOZA MD Ot 331.9 CEREB DEGENERATION NOS 12/27/2015 ALEJANDRO MATHIS Ot 724.3 SCIATICA 12/27/2015 CHERYL ARRIOLA MD Ot V72.84 EXAM PRE-OPERATIVE NOS 12/27/2015 DENISHA VENTURA COUPLER Ot 786.2 COUGH 12/27/2015 SOWMYA LOZA MD Ot 294.20 DEMENTIA, UNSPECIFIED, WITHOUT BEHAVIORA 12/27/2015 SOWMYA LOZA MD Ot 331.9 CEREB DEGENERATION NOS 12/27/2015 ALEJANDRO MATHIS Ot 724.3 SCIATICA 12/27/2015 CHERYL ARRIOLA MD Ot V72.84 EXAM PRE-OPERATIVE NOS 12/27/2015 DENISHA VENTURA COUPLER Ot 786.2 COUGH 01/01/2016 JHON MATTHEWS MD Ot F03.90 UNSPECIFIED DEMENTIA WITHOUT BEHAVIORAL 01/01/2016 JHON MATTHEWS MD Ot M47.812 SPONDYLOSIS W/O MYELOPATHY OR RADICULOPA 01/01/2016 JHON MATTHEWS MD Ot S01.01XA LACERATION WITHOUT FOREIGN BODY OF SCALP 01/01/2016 JHON MATTHEWS MD Ot S09.90XA UNSPECIFIED INJURY OF HEAD, INITIAL ENCO 01/01/2016 JHON MATTHEWS MD Ot W01.0XXA FALL SAME LEV FROM SLIP/TRIP W/O STRIKE 01/01/2016 JHON MATTHEWS MD Ot Y92.[address] [facility] PLACE 01/01/2016 JHON MATTHEWS MD Ot Y99.8 OTHER EXTERNAL CAUSE STATUS 01/01/2016 JHON MATTHEWS MD Ot Z23 ENCOUNTER FOR IMMUNIZATION 04/27/2016 JHON MATTHEWS MD Ot I10 ESSENTIAL (PRIMARY) HYPERTENSION 04/27/2016 JHON MATTHEWS MD Ot I48.91 UNSPECIFIED ATRIAL FIBRILLATION 04/27/2016 JHON MATTHEWS MD Ot K64.9 UNSPECIFIED HEMORRHOIDS 04/27/2016 JHON MATTHEWS MD Ot K92.1 MELENA 04/27/2016 JHON MATTHEWS MD Ot R19.7 DIARRHEA, UNSPECIFIED 04/27/2016 JHON MATTHEWS MD Ot R41.0 DISORIENTATION, UNSPECIFIED 04/27/2016 JHON MATTHEWS MD Ot R53.1 WEAKNESS 04/27/2016 JHON MATTHEWS MD Ot S09.90XA UNSPECIFIED INJURY OF HEAD, INITIAL ENCO 04/27/2016 JHON MATTHEWS MD Ot W01.0XXA FALL SAME LEV FROM SLIP/TRIP W/O STRIKE 04/27/2016 JHON MATTHEWS MD Ot Y92.[address] [facility] PLACE 04/27/2016 JHON MATTHEWS MD Ot Y93.9 ACTIVITY, UNSPECIFIED 04/27/2016 JHON MATTHEWS MD Ot Y99.8 OTHER EXTERNAL CAUSE STATUS 04/27/2016 JHON MATTHEWS MD Ot Z79.899 OTHER BILINGUAL CUSTOMER SERVICE SPECIALIST (CURRENT) DRUG THERAPY 04/27/2016 JHON MATTHEWS MD Ot Z99.81 DEPENDENCE ON SUPPLEMENTAL OXYGEN 04/27/2016 Ot V58.61 ANTICOAGULANTS,LT,CURRENT USE 04/27/2016 Ot V58.83 ENCOUNTER FOR THERAPEUTIC DRUG MONITORIN 04/27/2016 Ot 401.9 HYPERTENSION NOS 04/27/2016 Ot 416.8 CHR PULMON HEART DIS NEC 04/27/2016 Ot V49.81 ASYMPT POSTMENOPAUSAL STATUS (AGE-RELATE 04/27/2016 Ot V76.12 OTH SCREEN MAMMO-MALIGN NEOPLASM OF [place] 04/27/2016 Ot V82.81 SCREENING FOR OSTEOPOROSIS 04/27/2016 Ot V64.3 NO PROC FOR REASONS NEC 04/27/2016 Ot V76.51 SCREEN MAL NEOP-COLON 04/27/2016 Ot V72.84 EXAM PRE-OPERATIVE NOS 04/27/2016 Ot 427.31 ATRIAL FIBRILLATION 04/27/2016 Ot 786.50 CHEST PAIN NOS 04/27/2016 ANURADHA RENE DO Ot 569.3 RECTAL ANAL HEMORRHAGE 04/27/2016 DAGO SIERRA, SOWMYA Roberts Ot 294.20 DEMENTIA, UNSPECIFIED, WITHOUT BEHAVIORA 04/27/2016 DAGO SIERRA, SOWMYA Roberts Ot 331.9 CEREB DEGENERATION NOS 04/27/2016 ALEJANDRO MATHIS RADIATION PROTECTION ENGINEER Ot 724.3 SCIATICA 04/27/2016 CHERYL ARRIOLA MD Ot V72.84 EXAM PRE-OPERATIVE NOS 04/27/2016 DENISHA VENTURA APRN Ot 786.2 COUGH 11/08/2016 DAGO SIERRA, SOWMYA Roberts Ot N39.0 URINARY TRACT INFECTION, SITE NOT SPECIF 11/28/2016 GLORIA ERNST DO Ot F03.90 UNSPECIFIED DEMENTIA WITHOUT BEHAVIORAL 11/28/2016 GLORIA ERNST DO Ot I10 ESSENTIAL (PRIMARY) HYPERTENSION 11/28/2016 GLORIA ERNST DO Ot I48.2 CHRONIC ATRIAL FIBRILLATION 11/28/2016 GLORIA ERNST DO Ot S40.011A CONTUSION OF RIGHT SHOULDER, INITIAL ENC 11/28/2016 GLORIA ERNST DO Ot S49.91XA UNSP INJURY OF RIGHT SHOULDER AND UPPER 11/28/2016 GLORIA ERNST DO Ot W01.0XXA FALL SAME LEV FROM SLIP/TRIP W/O STRIKE 11/28/2016 GLORIA ERNST DO Ot Y92.[address] IN UNSP NON-INSTITUT ( PRIVATE 11/28/2016 GLORIA ERNST DO Ot Y99.8 OTHER EXTERNAL CAUSE STATUS 11/30/2016 SOWMYA LOZA MD Ot N39.0 URINARY TRACT INFECTION, SITE NOT SPECIF 12/01/2016 GLORIA ERNST DO Ot F03.90 UNSPECIFIED DEMENTIA WITHOUT BEHAVIORAL 12/01/2016 GLORIA ERNST DO Ot I10 ESSENTIAL (PRIMARY) HYPERTENSION 12/01/2016 GLORIA ERNST DO Ot I48.2 CHRONIC ATRIAL FIBRILLATION 12/01/2016 GLORIA ERNST DO, Ot S40.011A CONTUSION OF RIGHT SHOULDER, INITIAL ENC 12/01/2016 GLORIA ERNST DO, Ot S49.91XA UNSP INJURY OF RIGHT SHOULDER AND UPPER 12/01/2016 GLORIA ERNST DO, Ot W01.0XXA FALL SAME LEV FROM SLIP/TRIP W/O STRIKE 12/01/2016 GLORIA ERNST DO Ot Y92.[address] IN UNSP NON-INSTITUT ( PRIVATE 12/01/2016 GLORIA ERNST DO, Ot Y99.8 OTHER EXTERNAL CAUSE STATUS 12/07/2016 DAGO SIERRA, SOWMYA Roberts Ot N39.0 URINARY TRACT INFECTION, SITE NOT SPECIF 01/19/2017 SOWMYA LOZA MD Ot 294.20 DEMENTIA, UNSPECIFIED, WITHOUT BEHAVIORA 01/19/2017 SOWMYA LOZA MD Ot 331.9 CEREB DEGENERATION NOS 01/19/2017 ALEJANDRO MATHIS [facility] Ot 724.3 SCIATICA 01/19/2017 FLAKO SIERRA, CHERYL Ot V72.84 EXAM PRE-OPERATIVE NOS 01/19/2017 DENISHA VENTURA COUPLER Ot 786.2 COUGH 01/19/2017 SOWMYA LOZA MD Ot N39.0 URINARY TRACT INFECTION, SITE NOT SPECIF 01/22/2017 SOWMYA LOZA MD Ot R52 PAIN, UNSPECIFIED 01/22/2017 SOWMYA LOZA MD, Ot N39.0 URINARY TRACT INFECTION, SITE NOT SPECIF Procedures Results Test Result Range Complete blood count (CBC) with automated white blood cell (WBC) differential - 04/27/16 15:35 Blood leukocytes automated count (number/volume) 7.6 10*3/ uL 4.3-11.0 Blood erythrocytes automated count (number/volume) 3.69 10*6 /uL 4.35-5.85 Venous blood hemoglobin measurement (mass/volume) 12.3 g/dL 11.5-16.0 Blood hematocrit (volume fraction) 37 % 35-52 Automated erythrocyte mean corpuscular volume 101 [foz_us] 80-99 Automated erythrocyte mean corpuscular hemoglobin (mass per erythrocyte) 33 pg 25-34 Automated erythrocyte mean corpuscular hemoglobin concentration measurement ( mass/volume) 33 g/dL 32-36 Automated erythrocyte distribution width ratio 13.2 % 10.0-14.5 Automated blood platelet count (count/volume) 220 10*3/uL 130-400 Automated blood platelet mean volume measurement 9.6 [foz_us ] 7.4-10.4 Automated blood neutrophils/100 leukocytes 55 % 42-75 Automated blood lymphocytes/100 leukocytes 32 % 12-44 Blood monocytes/100 leukocytes 10 % 0-12 Automated blood eosinophils/100 leukocytes 3 % 0-10 Automated blood basophils/100 leukocytes 0 % 0-10 Blood neutrophils automated count (number/volume) 4.2 10*3 1.8-7.8 Blood lymphocytes automated count (number/volume) 2.4 10*3 1.0-4.0 Blood monocytes automated count (number/volume) 0.7 10*3 0.0-1.0 Automated eosinophil count 0.2 10*3/uL 0.0-0.3 Automated blood basophil count (count/volume) 0.0 10*3/uL 0.0-0.1 Comprehensive metabolic panel - 04/27/16 15:35 Serum or plasma sodium measurement (moles/volume) 142 mmol/ L 135-145 Serum or plasma potassium measurement (moles/volume) 3.8 mmol/L 3.6-5.0 Serum or plasma chloride measurement (moles/volume) 109 mmol /L 98-107 Carbon dioxide 27 mmol/L 21-32 Serum or plasma anion gap determination (moles/volume) 6 mmol/L 5-14 Serum or plasma urea nitrogen measurement (mass/volume) 20 mg/dL 7-18 Serum or plasma creatinine measurement (mass/volume) 0.76 mg /dL 0.60-1.30 Serum or plasma urea nitrogen/creatinine mass ratio 26 NRG Serum or plasma creatinine measurement with calculation of estimated glomerular filtration rate > NRG Serum or plasma glucose measurement (mass/volume) 122 mg/dL 70-105 Serum or plasma calcium measurement (mass/volume) 8.2 mg/dL 8.5-10.1 Serum or plasma total bilirubin measurement (mass/volume) 0.2 mg/dL 0.1-1.0 Serum or plasma alkaline phosphatase measurement (enzymatic activity/volume) 56 U/L 40-136 Serum or plasma aspartate aminotransferase measurement (enzymatic activity/ volume) 9 U/L 5-34 Serum or plasma alanine aminotransferase measurement (enzymatic activity/volume ) 10 U/L 0-55 Serum or plasma protein measurement (mass/volume) 5.6 g/dL 6.4-8.2 Serum or plasma albumin measurement (mass/volume) 3.3 g/dL 3.2-4.5 Magnesium - 04/27/16 15:35 Magnesium 2.1 mg/dL 1.8-2.4 Complete urinalysis with reflex to culture - 11/02/16 07:45 Urine color determination YELLOW NRG Urine clarity determination CLEAR NRG Urine pH measurement by test strip 5 5- 9 Specific gravity of urine by test strip 1.025 1.016-1.022 Urine protein assay by test strip, semi-quantitative NEGATIVE NEGATIVE Urine glucose detection by automated test strip NEGATIVE NEGATIVE Erythrocytes detection in urine sediment by light microscopy 1+ NEGATIVE Urine ketones detection by automated test strip 1+ NEGATIVE Urine nitrite detection by test strip NEGATIVE NEGATIVE Urine total bilirubin detection by test strip NEGATIVE NEGATIVE Urine urobilinogen measurement by automated test strip (mass/volume) 1 mg/dL NORMAL Urine leukocyte esterase detection by dipstick 1+ NEGATIVE Automated urine sediment erythrocyte count by microscopy (number/high power field) [HPF] NRG Automated urine sediment leukocyte count by microscopy (number/high power field ) [HPF] NRG Bacteria detection in urine sediment by light microscopy FEW NRG Squamous epithelial cells detection in urine sediment by light microscopy 25-50 NRG Crystals detection in urine sediment by light microscopy PRESENT NRG Casts detection in urine sediment by light microscopy NONE NRG Mucus detection in urine sediment by light microscopy NEGATIVE NRG Complete urinalysis with reflex to culture YES NRG Calcium oxalate crystals detection in urine sediment by light microscopy RARE NRG Bacterial urine culture - 11/02/16 07:45 Bacterial urine culture [id number] NRG COLONY COUNT <10,000 NRG FREE TEXT ENTRY 2 MIXED GRAM POSITIVE ALLYSON <10,000/ML NRG Complete blood count (CBC) with automated white blood cell (WBC) differential - 01/18/17 10:01 Blood leukocytes automated count (number/volume) 11.7 10*3/ uL 4.3-11.0 Blood erythrocytes automated count (number/volume) 3.44 10*6 /uL 4.35-5.85 Venous blood hemoglobin measurement (mass/volume) 10.1 g/dL 11.5-16.0 Blood hematocrit (volume fraction) 33 % 35-52 Automated erythrocyte mean corpuscular volume 96 [foz_us] 80-99 Automated erythrocyte mean corpuscular hemoglobin (mass per erythrocyte) 29 pg 25-34 Automated erythrocyte mean corpuscular hemoglobin concentration measurement ( mass/volume) 31 g/dL 32-36 Automated erythrocyte distribution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
== END 2017-01-18 15:12 | disposition home or self-care (01) ==
LOC: EDUNIT# 09:25 → ER 09:27
DX: S09.90XA Unspecified injury of head, initial encounter (principal); I48.91 Unspecified atrial fibrillation; I10 Essential (primary) hypertension; E78.00 Pure hypercholesterolemia, unspecified; I25.10 Atherosclerotic heart disease of native coronary artery without angina pectoris; F03.90 Unspecified dementia, unspecified severity, without behavioral disturbance, psychotic disturbance, mood disturbance, and anxiety; K21.9 Gastro-esophageal reflux disease without esophagitis; F32.9 Major depressive disorder, single episode, unspecified; M19.90 Unspecified osteoarthritis, unspecified site; Z82.49 Family history of ischemic heart disease and other diseases of the circulatory system; Z80.1 Family history of malignant neoplasm of trachea, bronchus and lung; Z85.820 Personal history of malignant melanoma of skin; W01.10XA Fall on same level from slipping, tripping and stumbling with subsequent striking against unspecified object, initial encounter
CPT/HCPCS: 36415; 70450; 80053; 80162; 81000; 83735; 85025; 90471; 90715; 93041; 96360; 96361

== ENCOUNTER → 2017-01-21 | Outpatient (CLI) | payer MEDICARE, OTHER, MEDICAID | LOC: CVS 19:36 | PROVIDERS: ATTEND Family Medicine | DX: N39.0 Urinary tract infection, site not specified (principal) | CPT/HCPCS: 87088 ==

== ENCOUNTER 2017-01-23 17:32 | Inpatient (IN) | payer MEDICARE, OTHER, MEDICAID ==
[~2017-01-23] VITALS: Ht 160 cm; Wt 73.7 kg
--- NOTE | 2017-01-23 17:43 | ED Chest Pain ---
General Stated Complaint: CHEST PAIN Source: patient, EMS, senior care records Exam Limitations: clinical condition History of Present Illness Time seen by provider: 17:38 Initial Comments Patient presents to ER by EMS with a chief complaint of chest pain from the senior care [facility]. EMS reports the nurse reports she had had some chest pain and bradycardia in the 40s. On arrival the patient's heart rate was 50 to 60s per EMS. On arrival in the ER patient's heart rate was also in the 50s to 60s. Earlier in the week she had a fall and since then has had several sick Downs. They also told EMS that they had sent off a urine culture but had not see any results yet. EMS says that they asked the patient she is on a chest pain and she said no masses she's had the chest pain at all today and she said no. Patient is known to have dementia and be confused and unreliable historian. Patient is unable to give any review of systems or answer any questions for me. However did arouse to painful stimuli and fall voiced. EMS denies she's had any signs of nausea or vomiting. They started an IV and get 500 cc of fluid initiated on her as well as got a 12-lead that they said had a lot of artifact was difficult to interpret. Allergies and Home Medications Allergies Coded Allergies: No Known Drug Allergies (Verified , 12/08/14) Home Medications Acidophilus/Bulgaricus 1 Tab.chew Tab.chew, 1 TAB.CHEW PO Q8H, #30 Prescribed by: SOWMYA LOZA on 12/14/1428 Ascorbic Acid 250 Mg Tab, 250 MG PO DAILY for 0 Days Prescribed by: AMBER BLOOM on 12/08/14 1820 Atorvastatin Calcium 10 Mg Tablet, 10 MG PO HS, (Reported) Azithromycin 250 Mg Tablet, 250 MG PO DAILY, #5 Prescribed by: SOWMYA LOZA on 12/14/14 0928 Cefdinir 300 Mg Capsule, 1 EACH PO BID, #14 Prescribed by: SOWMYA LOZA on 12/14/1428 Cholecalciferol 400 Unit Tablet, 400 UNIT PO DAILY for 0 Days Prescribed by: AMBER BLOOM on 12/08/14 182 Citalopram Hydrobromide 20 Mg Tab, 20 MG PO DAILY, (Reported) Dabigatran Etexilate Mesylate 150 Mg Capsule, 150 MG PO BID, #0 Prescribed by: SOWMYA LOZA on 12/14/14 0928 Digoxin 0.25 Mg Tab, 0.25 MG PO DAILY, (Reported) Diltiazem Hcl 120 Mg Cap.sr.24h, 120 MG PO DAILY, (Reported) Hydrocodone Bit/Acetaminophen 1 Ea Tablet, 1-2 EA PO Q6H PRN for PAIN, #30 Prescribed by: SOWMYA LOZA on 12/14/14 0928 Lactobacillus Acidophilus 1 Each Capsule, 1 EACH PO DAILY for 0 Days Prescribed by: AMBER BLOOM on 12/08/14 1820 Metoprolol Succinate 25 Mg Tab.sr.24h, 25 MG PO DAILY, (Reported) Multivitamin 1 Each Tablet, 1 TAB PO DAILY, (Reported) [place]-3 Fatty Acids/Fish Oil 1 Each Capsule, 1,200 MG PO DAILY, (Reported) Pantoprazole Sod 40 Mg Tab, 40 MG PO BID@07,17, #60 Prescribed by: SOWMYA LOZA on 10/09/14 0909 Potassium Chloride 10 Meq Tablet.sa, 10 MEQ PO DAILY, (Reported) Valacyclovir Hcl 500 Mg Tablet, 500 MG PO DAILY, (Reported) [Albuterol Sulfate] 2.5 MG/3 ML NEBU, 2.5 MG INH RTTID, #21 Prescribed by: SOWMYA LOZA on 12/14/14927 Review of Systems Constitutional: see HPI (unable to obtain a meaningful review of systems.) Past Qqywghk-Znlvkw-Znuvzz Hx Patient Social History Alcohol Use: Denies Use (unable to obtain) Type Used: Cigarettes 2nd Hand Smoke Exposure: No Recent Hopitalizations: No Immunizations Up To Date Date of Pneumonia Vaccine: Feb 02, 2014 Date of Influenza Vaccine: Mar 28, 2014 Seasonal Allergies Seasonal Allergies: Yes Surgeries HX Surgeries: Yes (CATARACTS, SHOULDER, ARM SURGERY) Surgeries: Gallbladder, Orthopedic Respiratory Hx Respiratory Disorders: Yes (SHOULD WEAR HOME O2 BUT DOESN'T) Cardiovascular Hx Cardiac Disorders: Yes Cardiac Disorders: Atrial Fibrillation, Coronary Artery Disease, High Cholesterol, Hypertension Neurological Hx Neurological Disorders: Yes Neurological Disorders: Dementia Reproductive System Hx Reproductive Disorders: No Sexually Transmitted Disease: No HIV/AIDS: No Female Reproductive Disorders: Denies Genitourinary Hx Genitourinary Disorders: No Gastrointestinal Hx Gastrointestinal Disorders: Yes (GALLBLADDER REMOVED 2008) Gastrointestinal Disorders: Gastroesophageal Reflux, C-Diff Musculoskeletal Hx Musculoskeletal Disorders: Yes (FX DOMI) Musculoskeletal Disorders: Arthritis, Fractures Endocrine Hx Endocrine Disorders: No HEENT HX ENT Disorders: Yes (CATARACTS REMOVED 2011) HEENT Disorders: Cataract Loss of Vision: Denies Hearing Impairment: Hard of Hearing Cancer Hx Cancer: Yes Cancer: Melanoma Psychosocial Hx Psychiatric Problems: Yes (DEPRESSION FOLLOWING LOSS OF ) Behavioral Health Disorders: Depression Integumentary HX Skin/Integumentary Disorder: Yes (SHINGLES) Blood Transfusions Hx Blood Disorders: No Adverse Reaction to a Blood Tr: No Family Medical History Significant Family History: Heart Disease, Cancer, CAD Over 55 Years Old, Hypertension Family Medial History: Arthritis (DAUGHTER) Cancer 09 BROTHER (LUNG CANCER) Completed stroke (DAUGHTER ) Family history: Cardiovascular disease 03 FATHER 03 MOTHER Family history: Diabetes mellitus 03 MOTHER Headache disorder Hypercholesterolemia (DAUGHTER ) Hypertension (DAUGHTER ) Infertility (DAUGHTER ) Myocardial infarction 03 FATHER Severe allergy (DAUGHTER ) Physical Exam Vital Signs Vital Sign - Last 12Hours Capillary Refill : General Appearance: No Apparent Distress, WD/WN HEENT: PERRL/EOMI, TMs Normal, Pharynx Normal (dry mucous membranes) Neck: Normal Inspection, Non Tender, No JVD Respiratory: Chest Non Tender, Lungs Clear, Normal Breath Sounds, No Accessory Muscle Use Cardiovascular: Regular Rate, Rhythm, No Edema, No JVD, Normal Peripheral Pulses Gastrointestinal: No Organomegaly, No Pulsatile Mass, Non Tender, Abnormal Bowel Sounds (hypoactive), Guarding Extremity: Normal Capillary Refill, Normal Inspection, No Pedal Edema Neurologic/Psychiatric: Disoriented x3, Other (does not follow commands and is alert to painful stimuli gives one-word answers.) Skin: Warm/Dry, Pallor Lymphatic: No Adenopathy Focused Exam Lactic Acid Level Laboratory Tests Test 01/23/17 17:40 Lactic Acid Level 1.00 MMOL/L (0.50-2.00) Progress/Results/Core Measures Results/Orders Lab Results Laboratory Tests Test 01/23/17 17:40 01/23/17 18:05 Range/Units White Blood Count 6.9 4.3-11.0 10^3/uL Red Blood Count 2.77 L 4.35-5.85 10^6/uL Hemoglobin 8.1 L 11.5-16.0 G/DL Hematocrit 26 L 35-52 % Mean Corpuscular Volume 95 80-99 FL Mean Corpuscular Hemoglobin 29 25-34 PG Mean Corpuscular Hemoglobin Concent 31 L 32-36 G/DL Red Cell Distribution Width 14.5 10.0-14.5 % Platelet Count 274 130-400 10^3/uL Mean Platelet Volume 9.9 7.4-10.4 FL Neutrophils (%) (Auto) 64 42-75 % Lymphocytes (%) (Auto) 26 12-44 % Monocytes (%) (Auto) 7 0-12 % Eosinophils (%) (Auto) 3 0-10 % Basophils (%) (Auto) 1 0-10 % Neutrophils # (Auto) 4.4 1.8-7.8 X 10^3 Lymphocytes # (Auto) 1.8 1.0-4.0 X 10^3 Monocytes # (Auto) 0.5 0.0-1.0 X 10^3 Eosinophils # (Auto) 0.2 0.0-0.3 10^3/uL Basophils # (Auto) 0.0 0.0-0.1 10^3/uL Prothrombin Time 17.8 H 12.2-14.7 SEC INR Comment 1.5 H 0.8-1.4 Activated Partial Thromboplast Time 53 H 24-35 SEC Sodium Level 143 135-145 MMOL/L Potassium Level 3.9 3.6-5.0 MMOL/L Chloride Level 107 98-107 MMOL/L Carbon Dioxide Level 23 21-32 MMOL/L Anion Gap 13 5-14 MMOL/L Blood Urea Nitrogen 28 H 7-18 MG/DL Creatinine 0.74 0.60-1.30 MG/DL Estimat Glomerular Filtration Rate > 60 BUN/Creatinine Ratio 38 Glucose Level 100 70-105 MG/DL Lactic Acid Level 1.00 0.50-2.00 MMOL/L Calcium Level 8.6 8.5-10.1 MG/DL Magnesium Level 2.1 1.8-2.4 MG/DL Total Bilirubin 0.4 0.1-1.0 MG/DL Aspartate Amino Transf (AST/SGOT) 10 5-34 U/L Alanine Aminotransferase (ALT/SGPT) 20 0-55 U/L Alkaline Phosphatase 52 40-136 U/L Myoglobin 26.0 10.0-92.0 NG/ML Troponin I < 0.30 <0.30 NG/ML Total Protein 5.6 L 6.4-8.2 GM/DL Albumin 3.5 3.2-4.5 GM/DL Digoxin Level 1.53 0.80-2.00 NG/ML Urine Color YELLOW Urine Clarity VERY CLOUDY H Urine pH 5 5-9 Urine Specific [place] 1.020 1.016-1.022 Urine Protein 2+ H NEGATIVE Urine Glucose (UA) NEGATIVE NEGATIVE Urine Ketones 1+ H NEGATIVE Urine Nitrite POSITIVE H NEGATIVE Urine Bilirubin NEGATIVE NEGATIVE Urine Urobilinogen 1 NORMAL MG/DL Urine Leukocyte Esterase 2+ H NEGATIVE Urine RBC (Auto) 4+ H NEGATIVE Urine RBC 0-2 /HPF Urine WBC 25-50 H /HPF Urine Squamous Epithelial Cells 2-5 /HPF Urine Crystals NONE /LPF Urine Bacteria MODERATE H /HPF Urine Casts NONE /LPF Urine Mucus NEGATIVE /LPF Urine Culture Indicated YES My Orders Orders - EMI HIGH Cbc With Automated Diff (01/23/17 17:43) Comprehensive Metabolic Panel (01/23/17 17:43) Lactic Acid Analyzer (01/23/17 17:43) Blood Culture (01/23/17 17:43) Sputum Culture (01/23/17 17:43) Ua Culture If Indicated (01/23/17 17:43) Protime With Inr (01/23/17 17:43) Partial Thromboplastin Time (01/23/17 17:43) Chest 1 View, Ap/Pa Only (01/23/17 17:43) O2 (01/23/17 17:43) Saline Lock/Iv-Start (01/23/17 17:43) Saline Lock/Iv-Start (01/23/17 17:43) Vital Signs Adult Sepsis Patie Q1HR (01/23/17 17:43) Remove Rings In Anticipation O (01/23/17 17:43) Magnesium (01/23/17 17:43) Ekg Tracing (01/23/17 17:43) Cardiac Profile 1 (01/23/17 17:43) Myoglobin Serum (01/23/17 17:43) O2 (01/23/17 17:43) Monitor-Rhythm Ecg Trace Only (01/23/17 17:43) Lipid Panel (01/24/17 06:00) Ct Abdomen/Pelvis Wo (01/23/17 17:43) Digoxin (01/23/17 17:40) Urine Culture (01/23/17 18:05) Ceftriaxone Injection (Rocephin Injectio (01/23/17 18:45) Vital Signs/I&O Vital Sign - Last 12Hours 01/23/17 01/23/17 01/23/17 17:46 17:46 17:46 Temp 98.7 Pulse 64 Resp 22 B/P (MAP) 82/35 Pulse Ox 93 94 O2 Delivery Nasal Cannula Nasal Cannula Nasal Cannula O2 Flow Rate 2.0 2.00 2.0 Progress Note #1: Time: 17:48 Progress Note Patient with a questionable history of chest pain recent fall decline in function history of dementia and potential UTI and not on any kind of antibiotics. Her abdomen is tense and bowel sounds are hypoactive. We will treat her as a chest pain and a sepsis workup. Not sure what her baseline is but according to records she is quite confused and demented. She is on Pradaxa Cardizem and digoxin. We'll check a dig level. Progress Note #2: Time: 18:35 Progress Note Urinalysis with nitrites leuk esterase 25-50 white cells per high-power field and moderate bacteria. We will initiate Rocephin. She has a normal lactate. We have given her a total of 1/2 L of normal saline at this point so we will hold off going further. She has elevated PT/INR which may be evidence of decrease liver synthesis function. Unlikely Pradaxa is causing this bump in the INR. Progress Note #3: Time: 19:12 Progress Note Discussed with the daughter who is the POA who is willing to consider hospice. We will pass this on to Dr. Lockwood that she wanted to pursue Hospice. ECG Initial ECG Impression Date: Jan 23, 2017 Initial ECG Impression Time: 17:44 Initial ECG Rate: 56 Initial ECG Rhythm: A Fib/Flutter (manny) Initial ECG Intervals: Normal Initial ECG Impression: Atrial Fibrillation (manny) Initial ECG Comparisson: No Previous ECG Available Comment No ST-T wave elevation or depression however she is mildly bradycardic. Departure Communication Time/Spoke to Admitting Phy: 19:[address] Florin Lockwood. We discussed the patient's lab work and urinalysis. Her history of atrial fibrillation on Pradaxa. We discussed her PT-INR and her chest pain symptoms. We discussed normal EKG and troponin and I have started her on Rocephin and given her a liter fluids. He is okay with continuing 75 cc an hour of D5 overnight. We discussed the daughter's desire for a hospice consult and he is okay with me putting a consult to hospice in the morning order. He will see her in the morning. Impression Impression: Primary Impression: Urinary tract infection Qualified Codes: N30.00 - Acute cystitis without hematuria Additional Impressions: Sepsis Qualified Codes: A41.9 - Sepsis, unspecified organism Dementia Qualified Codes: F03.90 - Unspecified dementia without behavioral disturbance Delirium Chest pain Qualified Codes: R07.9 - Chest pain, unspecified Disposition: 09 ADMITTED INPATIENT Condition: Improved Decision to Admit Reason: Admit from ER (General) Decision to Admit/Date: Jan 23, 2017 Time/Decision to Admit Time: 19:20 Departure-Patient Inst. Referrals: SOWMYA LOZA MD (PCP/Family) Primary Care Physician Copy Copies To 1: SOWMYA LOZA MD, TITUS J Jan 23, 2017 17:43
[2017-01-23 17:51] LABS: BASOPHILS % (AUTO) 1 % (0-10); EOSINOPHILS # (AUTO) 0.2 10^3/uL (0.0-0.3); EOSINOPHILS % (AUTO) 3 % (0-10); LYMPHOCYTES # (AUTO) 1.8 X 10^3 (1.0-4.0); LYMPHOCYTES % (AUTO) 26 % (12-44); MEAN CORPUSCULAR HEMOGLOBIN 29 PG (25-34); MEAN CORPUSCULAR HGB CONC 31 G/DL (32-36); MEAN CORPUSCULAR VOLUME 95 FL (80-99); MEAN PLATELET VOLUME 9.9 FL (7.4-10.4); MONOCYTES # (AUTO) 0.5 X 10^3 (0.0-1.0); MONOCYTES % (AUTO) 7 % (0-12); NEUTROPHILS # (AUTO) 4.4 X 10^3 (1.8-7.8); NEUTROPHILS % (AUTO) 64 % (42-75); PLATELET COUNT 274 10^3/uL (130-400); RED BLOOD COUNT 2.77 10^6/uL (4.35-5.85); RED CELL DISTRIBUTION WIDTH 14.5 % (10.0-14.5); WHITE BLOOD COUNT 6.9 10^3/uL (4.3-11.0)
[2017-01-23 17:58] LABS: INR 1.5 (0.8-1.4); PROTHROMBIN TIME PATIENT 17.8 SEC (12.2-14.7)
[2017-01-23 18:03] LABS: MAGNESIUM 2.1 MG/DL (1.8-2.4)
[2017-01-23 18:10] LABS: BILIRUBIN,URINE NEGATIVE (NEGATIVE); KETONES,URINE 1+ (NEGATIVE); LEUKOCYTE ESTERASE ,URINE 2+ (NEGATIVE); NITRITE,URINE POSITIVE (NEGATIVE); PH,URINE 5 (5-9); PROTEIN,URINE 2+ (NEGATIVE); UROBILINOGEN,URINE 1 MG/DL (NORMAL)
[2017-01-23 18:17] LABS: WBC,URINE 25-50 /HPF
--- NOTE | 2017-01-23 18:37 | Diagnostic Imaging Report ---
INDICATION: Abdominal distention. EXAMINATION: CT of the abdomen and pelvis was obtained without IV contrast. COMPARISON: 04/13/2008. CT ABDOMEN/PELVIS FINDINGS: The visualized portions of the lung bases show dependent atelectatic changes. There is a calcified granuloma in the left base. There is no free intraperitoneal air. The liver shows multiple cysts which are unchanged from the previous study. Patient has had cholecystectomy. The spleen, adrenals and pancreas are normal. Kidneys, bilaterally, appear unremarkable. There is no retroperitoneal mass. There is atherosclerotic change of the aorta without evidence of aneurysm. There is no pelvic mass or free fluid. There is a large amount of stool throughout the colon. There is no significant small bowel dilatation. IMPRESSION: Stable cyst in the liver. Mild bibasilar atelectasis. Status post cholecystectomy. There is a large amount of stool throughout the colon. There is no significant small bowel dilatation. There is no abscess or abnormal fluid collection. Dictated by: Dictated on workstation # [id number]
[2017-01-23 18:38] LABS: ALANINE AMINOTRANSFERASE 20 U/L (0-55); ALBUMIN 3.5 GM/DL (3.2-4.5); ANION GAP 13 MMOL/L (5-14); ASPARTATE AMINO TRANSFERASE 10 U/L (5-34); BILIRUBIN,TOTAL 0.4 MG/DL (0.1-1.0); BLOOD UREA NITROGEN 28 MG/DL (7-18); BUN/CREATININE RATIO 38; CALCIUM 8.6 MG/DL (8.5-10.1); CARBON DIOXIDE 23 MMOL/L (21-32); CHLORIDE 107 MMOL/L (98-107); CREATININE SERUM 0.74 MG/DL (0.60-1.30); GFR ESTIMATED > 60; GLUCOSE 100 MG/DL (70-105); POTASSIUM 3.9 MMOL/L (3.6-5.0); SODIUM 143 MMOL/L (135-145); TOTAL PROTEIN 5.6 GM/DL (6.4-8.2)
--- NOTE | 2017-01-23 18:41 | Diagnostic Imaging Report ---
INDICATION: Chest pain. Frontal chest obtained at 6:19 p.m. and compared to 12/14/14. FINDINGS: Heart is borderline enlarged. There is mild central vascular prominence. There is no focal infiltrate or pneumothorax or pleural fluid. The infiltrate visualized in the left base on the prior study have resolved. The orthopedic hardware in the right humerus is unchanged. IMPRESSION: No acute process in the chest, no focal infiltrate. Borderline heart size with mild central vascular prominence. No nell edema or pleural fluid. Dictated by: Dictated on workstation # [id number]
[2017-01-23 18:44] LABS: DIGOXIN 1.53 NG/ML (0.80-2.00)
[2017-01-23] MEDS ORDERED: cefTRIAXone INJECTION 2,000 MG in NS (IVPB) 50 ML IV ONE (18:45)
[2017-01-23] MEDS: D5 NS 1000 ML IV SOLUTION 1,000 ML IV SCH ×2 (19:31→21:25)
[2017-01-23 20:10] VITALS: BP 145/75
[2017-01-23] MEDS ORDERED: ASPIRIN 325 MG (5 GR) TABLET PO ONE (20:30)
[2017-01-23] MEDS ORDERED: NITROGLYCERIN SUBLINGUAL 0.4 MG TAB (NITROSTAT) SL PRN (20:30)
[2017-01-23] MEDS ORDERED: ONDANSETRON 4 MG/2 ML (SDV) Z0FRAN IV PRN (20:30)
[2017-01-23] MEDS: DABIGATRAN 150 MG (PRADAXA) CAPSULE PO SCH (21:44)
[2017-01-23] MEDS: meTOprolol TARTRATE 25 MG (LOPRESSOR) TABLET PO SCH (21:44)
[2017-01-23] MEDS: ATORVASTATIN 40 MG (LIPITOR) TABLET PO SCH (21:45)
[2017-01-24] VITALS (7 sets, daily range): BP systolic 78–135; BP diastolic 35–78
[2017-01-24] MEDS: D5 NS 1000 ML IV SOLUTION 1,000 ML IV SCH ×4 (05:07→23:14)
[2017-01-24 05:59] LABS: BASOPHILS % (AUTO) 0 % (0-10); EOSINOPHILS # (AUTO) 0.2 10^3/uL (0.0-0.3); EOSINOPHILS % (AUTO) 3 % (0-10); LYMPHOCYTES # (AUTO) 1.5 X 10^3 (1.0-4.0); LYMPHOCYTES % (AUTO) 27 % (12-44); MEAN CORPUSCULAR HEMOGLOBIN 29 PG (25-34); MEAN CORPUSCULAR HGB CONC 30 G/DL (32-36); MEAN CORPUSCULAR VOLUME 96 FL (80-99); MEAN PLATELET VOLUME 9.5 FL (7.4-10.4); MONOCYTES # (AUTO) 0.6 X 10^3 (0.0-1.0); MONOCYTES % (AUTO) 10 % (0-12); NEUTROPHILS # (AUTO) 3.5 X 10^3 (1.8-7.8); NEUTROPHILS % (AUTO) 60 % (42-75); PLATELET COUNT 221 10^3/uL (130-400); RED BLOOD COUNT 2.55 10^6/uL (4.35-5.85); RED CELL DISTRIBUTION WIDTH 14.4 % (10.0-14.5); WHITE BLOOD COUNT 5.8 10^3/uL (4.3-11.0)
[2017-01-24 06:16] LABS: ANION GAP 5 MMOL/L (5-14); BLOOD UREA NITROGEN 25 MG/DL (7-18); BUN/CREATININE RATIO 37; CALCIUM 8.2 MG/DL (8.5-10.1); CARBON DIOXIDE 29 MMOL/L (21-32); CHLORIDE 111 MMOL/L (98-107); CREATININE SERUM 0.67 MG/DL (0.60-1.30); GFR ESTIMATED > 60; GLUCOSE 93 MG/DL (70-105); POTASSIUM 3.9 MMOL/L (3.6-5.0); SODIUM 145 MMOL/L (135-145)
[2017-01-24 06:18] LABS: CHOLESTEROL 152 MG/DL (< 200); DIRECT LDL 97 MG/DL (1-129); TRIGLYCERIDES 81 MG/DL (<150); VLDL CHOLESTEROL 16 MG/DL (5-40)
[2017-01-24 06:24] LABS: TROPONIN I < 0.30 NG/ML (<0.30)
--- NOTE | 2017-01-24 08:54 | History & Physical ---
History of Present Illness History of Present Illness Reason for visit/HPI 81 yo F brought to ER from [facility] regarding chest pain that radiated to left arm per nursing staff. Onset yesterday afternoon- Pt had fallen the weeks previous to today's compliant. Pt does not communicate effectively as she has dementia. ER reports pt denies any chest pain or left arm pain. A urine culture was obtained last week at [facility] but no culture was found and it appears no antibiotics were started. Pt has not had a fever or other signs of infection. Recently her vitals have been bradycardia 50-60s and lower blood pressures 100/60s. While in the ER pt was given IVF, rocephin and asa. Her EKG showed atrial fibrillation which is not a new finding. ER staff spoke with family and they decided that they would like to know more about hospice. Pt was admitted for treatment of her UTI and monitoring of her chest pain- Her troponins were <0.30 Date of Admission Jan 23, 2017 at 19:30 Date Seen by Provider: Jan 24, 2017 Time Seen by Provider: 08:15 I consulted on this patient on 01/24/17 08:48 Attending Physician Ghazala Callahan MD Admitting Physician Sowmya Childress MD Consult Allergies and Home Medications Allergies Coded Allergies: No Known Drug Allergies (Verified , 12/08/14) Home Medications Acidophilus/Bulgaricus 1 Tab.chew Tab.chew, 1 TAB.CHEW PO Q8H, #30 Prescribed by: SOWMYA CHILDRESS on 12/14/14 0928 Ascorbic Acid 250 Mg Tab, 250 MG PO DAILY for 0 Days Prescribed by: AMBER BLOOM on 12/08/14 182 Atorvastatin Calcium 10 Mg Tablet, 10 MG PO HS, (Reported) Azithromycin 250 Mg Tablet, 250 MG PO DAILY, #5 Prescribed by: SOWMYA CHILDRESS on 12/14/14 0928 Cefdinir 300 Mg Capsule, 1 EACH PO BID, #14 Prescribed by: SOWMYA CHILDRESS on 12/14/14 0928 Cholecalciferol 400 Unit Tablet, 400 UNIT PO DAILY for 0 Days Prescribed by: AMBER BLOOM on 12/08/141819 Citalopram Hydrobromide 20 Mg Tab, 20 MG PO DAILY, (Reported) Dabigatran Etexilate Mesylate 150 Mg Capsule, 150 MG PO BID, #0 Prescribed by: SOWMYA CHILDRESS on 12/14/14 09 Digoxin 0.25 Mg Tab, 0.25 MG PO DAILY, (Reported) Diltiazem Hcl 120 Mg Cap.sr.24h, 120 MG PO DAILY, (Reported) Hydrocodone Bit/Acetaminophen 1 Ea Tablet, 1-2 EA PO Q6H PRN for PAIN, #30 Prescribed by: SOWMYA CHILDRESS on 12/14/14 09 Lactobacillus Acidophilus 1 Each Capsule, 1 EACH PO DAILY for 0 Days Prescribed by: AMBER BLOOM on 12/08/14 1820 Metoprolol Succinate 25 Mg Tab.sr.24h, 25 MG PO DAILY, (Reported) Multivitamin 1 Each Tablet, 1 TAB PO DAILY, (Reported) [place]-3 Fatty Acids/Fish Oil 1 Each Capsule, 1,200 MG PO DAILY, (Reported) Pantoprazole Sod 40 Mg Tab, 40 MG PO BID@07,17, #60 Prescribed by: SOWMYA CHILDRESS on 10/09/14 0909 Potassium Chloride 10 Meq Tablet.sa, 10 MEQ PO DAILY, (Reported) Valacyclovir Hcl 500 Mg Tablet, 500 MG PO DAILY, (Reported) [Albuterol Sulfate] 2.5 MG/3 ML NEBU, 2.5 MG INH RTTID, #21 Prescribed by: SOWMYA CHILDRESS on 12/14/14927 Past Fhsceqs-Ftcayv-Nsgunq Hx Patient Social History Alcohol Use: Denies Use Recreational Drug Use: No Smoking Status: Never a Smoker Type Used: Cigarettes 2nd Hand Smoke Exposure: No Physical Abuse Screen: No Sexual Abuse: No Recent Foreign Travel: No Contact w/other who traveled: No Recent Hopitalizations: No Recent Infectious Disease Expo: No Immunizations Up To Date Tetanus Booster (TDap): Unknown Date of Pneumonia Vaccine: Feb 02, 2014 Date of Influenza Vaccine: Mar 28, 2014 Seasonal Allergies Seasonal Allergies: Yes Surgeries HX Surgeries: Yes (CATARACTS, SHOULDER, ARM SURGERY) Surgeries: Gallbladder, Orthopedic Respiratory Hx Respiratory Disorders: Yes (SHOULD WEAR HOME O2 BUT DOESN'T) Cardiovascular Hx Cardiovascular Disorders: Yes Cardiac Disorders: Atrial Fibrillation, Coronary Artery Disease, High Cholesterol, Hypertension Neurological Hx Neurological Disorders: Yes Neurological Disorders: Dementia Reproductive System : No Hx Reproductive Disorders: No Sexually Transmitted Disease: No HIV/AIDS: No Female Reproductive Disorders: Denies SENIOR EMBEDDED SOFTWARE ENGINEER Hx: Menopausal Genitourinary Hx Genitourinary Disorders: No Gastrointestinal Hx Gastrointestinal Disorders: Yes (GALLBLADDER REMOVED 2008) Gastrointestinal Disorders: Gastroesophageal Reflux, C-Diff Musculoskeletal Hx Musculoskeletal Disorders: Yes (FX DOMI) Musculoskeletal Disorders: Arthritis, Fractures Endocrine Hx Endocrine Disorders: No HEENT HX ENT Disorders: Yes (CATARACTS REMOVED 2011) HEENT Disorders: Cataract Loss of Vision: Denies Hearing Impairment: Hard of Hearing Cancer Hx Cancer: Yes Cancer: Melanoma Psychosocial Hx Psychiatric Problems: Yes (DEPRESSION FOLLOWING LOSS OF ) Behavioral Health Disorders: Depression Integumentary HX Skin/Integumentary Disorder: Yes (SHINGLES) Blood Transfusions Hx Blood Disorders: No Adverse Reaction to a Blood Tr: No Family Medical History Significant Family History: Heart Disease, Cancer, CAD Over 55 Years Old, Hypertension Family Hx: Arthritis (DAUGHTER) Cancer 09 BROTHER (LUNG CANCER) Completed stroke (DAUGHTER ) Family history: Cardiovascular disease 03 FATHER 03 MOTHER Family history: Diabetes mellitus 03 MOTHER Headache disorder Hypercholesterolemia (DAUGHTER ) Hypertension (DAUGHTER ) Infertility (DAUGHTER ) Myocardial infarction 03 FATHER Severe allergy (DAUGHTER ) Review of Systems Review of Systems ROS Unable to Obtain: pt only responded to commands- squeezed my hand -moved her toes- Pt did not speak. Physical Exam Vital Signs Vital Sign - Last 12Hours Capillary Refill : Less Than 3 Seconds General Appearance: No Apparent Distress HEENT: PERRL/EOMI, Other (dry mucous membrane, halitosis- dried blood on teeth from cracked lips.) Neck: Full Range of Motion, Non Tender, Supple Respiratory: Chest Non Tender, Lungs Clear, Normal Breath Sounds Cardiovascular: Bradycardia (at times), Other (irregular rhythm, regular rate.) Gastrointestinal: Normal Bowel Sounds, Non Tender, Soft Rectal: Deferred Back: Normal Inspection, No CVA Tenderness Extremity: Non Tender, No Calf Tenderness Neurologic/Psychiatric: Alert, Depressed Affect, Disoriented x3 Skin: Normal Color, Warm/Dry Assessment/Plan Assessment/Plan Assessment/Plan 81 yo F N30 Urinary tract infection- continue rocephin, IVF chest pain- resolved? troponin negative, ekg afib chronic atrial fibrillation- continue pradaxa, digoxin, beta jaye -monitor heart rate acute on chronic anemia- hgb 7.4 holding on blood transfusion or further workup. coronary artery disease- troponin neg HTN- low normal blood pressure dementia- pt is declining- hospice consulted DVT ppx: pradaxa, scds. Dispo/Plan: poor prognosis-exterminator helper termite.- Hospice consult placed- will continue rocephin. Pending hospice consult and family input- will hold off on any blood transfusions at this time. Problems: Clinical Quality Measures AMI/AHF: ASA po Prior to arrival: No DVT/VTE Risk/Contraindication: Risk Factor Score Per Nursin RFS Level Per Nursing on Admit: 4+=Very High GHAZALA CALLAHAN MD Jan 24, 2017 8:54 am
[2017-01-24] MEDS ORDERED: lisINopril 5 MG (PRINIVIL) TABLET PO SCH (09:00)
[2017-01-24] MEDS: meTOprolol TARTRATE 25 MG (LOPRESSOR) TABLET PO SCH (09:21)
[2017-01-24] MEDS: DABIGATRAN 150 MG (PRADAXA) CAPSULE PO SCH ×2 (09:22→20:01)
[2017-01-24] MEDS: ASPIRIN E.C. 325 MG (ECOTRIN) TABLET PO SCH (09:22)
[2017-01-24] MEDS: DIGOXIN 0.25 MG (LANOXIN) TAB PO SCH (09:22)
[2017-01-24] MEDS: cefTRIAXone INJECTION 1,000 MG in NS (IVPB) 50 ML IV SCH (09:22)
[2017-01-24] MEDS: PANTOPRAZOLE 40 MG (PROTONIX) TAB PO SCH (09:24)
[2017-01-24] MEDS: ATORVASTATIN 40 MG (LIPITOR) TABLET PO SCH (20:01)
[2017-01-25] VITALS (11 sets, daily range): BP systolic 110–162; BP diastolic 31–82
[2017-01-25] MEDS: PANTOPRAZOLE 40 MG (PROTONIX) TAB PO SCH (06:08)
[2017-01-25] MEDS: D5 NS 1000 ML IV SOLUTION 1,000 ML IV SCH (06:08)
[2017-01-25] MEDS: DIGOXIN 0.25 MG (LANOXIN) TAB PO SCH (08:13)
[2017-01-25] MEDS: DABIGATRAN 150 MG (PRADAXA) CAPSULE PO SCH ×2 (08:13→20:57)
[2017-01-25] MEDS: ASPIRIN E.C. 325 MG (ECOTRIN) TABLET PO SCH (08:13)
[2017-01-25] MEDS: cefTRIAXone INJECTION 1,000 MG in NS (IVPB) 50 ML IV SCH (08:14)
--- NOTE | 2017-01-25 08:19 | Progress Note (SOAP) ---
Subjective Date Seen by Provider: Jan 25, 2017 Time Seen by Provider: 08:35 Subjective/Events-last exam PT IS A 81 Y/O FEMALE WHO IS KNOWN TO ME FROM CLINIC. NAIMA PRESENTED TO THE HOSPITAL AFTER HAVING INCREASING WEAKNESS, FEVER, WORSENING BEHAVIORS/CONFUSION. NAIMA WAS FOUND TO HAVE A URINARY TRACT INFECTION UPON EVALUATION IN THE EMERGENCY DEPARTMENT. Review of Systems General: No Chills, Fatigue, Malaise HEENT: No Head Aches Pulmonary: No Dyspnea, No Cough Cardiovascular: No: Chest Pain Gastrointestinal: No: Abdominal Pain, Nausea Genitourinary: No Dysuria Neurological: Confusion, Weakness Objective Exam Vital Signs Date Time Temp Pulse Resp B/P (MAP) Pulse Ox O2 Delivery O2 Flow Rate FiO2 01/25/17 03:25 97.7 75 20 120/79 94 Room Air 2.00 01/25/17 01:00 76 01/24/17 23:25 98.4 84 20 135/78 95 Room Air 2.00 01/24/17 19:57 99.0 84 22 102/63 92 Room Air 0.00 01/24/17 19:00 74 01/24/17 16:00 97.5 60 20 96/60 98 Nasal Cannula 2.00 01/24/17 13:00 73 01/24/17 11:55 96.4 61 18 78/35 98 Nasal Cannula 2.00 01/24/17 09:00 100 01/24/17 08:43 Nasal Cannula 2.00 I & O 01/25/17 07:00 Intake Total 780 ml Output Total 650 ml Balance 130 ml Capillary Refill : Less Than 3 Seconds General Appearance: No Apparent Distress, WD/WN HEENT: PERRL/EOMI Neck: Supple Respiratory: Chest Non Tender, Lungs Clear, Normal Breath Sounds Cardiovascular: Irregularly Irregular Gastrointestinal: normal bowel sounds, non tender, soft Extremity: No Pedal Edema Neurologic/Psychiatric: Alert, Oriented x3, No Motor/Sensory Deficits Skin: Warm/Dry Lymphatic: No Adenopathy Results Lab Microbiology 01/23/17 Blood Culture - Preliminary, Resulted No growth 01/23/17 Urine Culture - Preliminary, Resulted Escherichia Coli Assessment/Plan Assessment/Plan Assess & Plan/Chief Complaint ANEMIA - ATTEMPTED PHONE CALL TO HER DAUGHTER - THERE WAS NO ANSWER AND A DISCONNECTED NUMBER RECORDING ON THE END OF THE LINE. PT TO HAVE BLOOD TRANSFUSION TODAY. ATRIAL FIBRILLATION - CHRONIC - RESUME HOME MEDICATIONS. WEAKNESS -MONITOR SYMPTOMS. ENGAGE PHYSICAL THERAPY TOMORROW. DEMENTIA - ADVANCED - SUPPORTIVE CARE. Clinical Quality Measures AMI/AHF: ASA po Prior to arrival: No DVT/VTE Risk/Contraindication: Risk Factor Score Per Nursin RFS Level Per Nursing on Admit: 4+=Very High SOWMYA LOZA MD Jan 25, 2017 08:19
[2017-01-25] MEDS ORDERED: NS IV 500 ML 500 ML IV SCH (09:36)
[2017-01-25] MEDS ORDERED: diphenhydrAMINE 50 MG/ML INJ (BENADRYL) IVP PRN (09:45)
[2017-01-25] MEDS ORDERED: FUROSEMIDE 40 MG/4 ML INJ (LASIX) IVP NR (09:45)
[2017-01-25] MEDS ORDERED: ACETAMINOPHEN 325 MG TABLET/CAPLET (TYLENOL) PO PRN ×2 (09:45→20:15)
[2017-01-25] MEDS ORDERED: ALPR0.25 PO (14:02)
[2017-01-25] MEDS ORDERED: DIVA250T4 PO (14:02)
[2017-01-25] MEDS ORDERED: LORA10TA7 PO (14:02)
[2017-01-25] MEDS ORDERED: LOPE-134 PO (14:02)
[2017-01-25] MEDS ORDERED: ACET325T38 PO (14:02)
[2017-01-25] MEDS ORDERED: LACT-35 PO (14:10)
[2017-01-25] MEDS ORDERED: ALPRAZolam 0.25 MG (XANAX) TAB PO PRN (20:15)
[2017-01-25] MEDS ORDERED: LORATADINE (CLARITIN) 10 MG TAB PO PRN (20:15)
[2017-01-25] MEDS: ATORVASTATIN 40 MG (LIPITOR) TABLET PO SCH (20:57)
[2017-01-25] MEDS: SENNA W/DOCUSATE (SENOKOT S) TABLET PO SCH (20:57)
[2017-01-25] MEDS: DIVALPROEX 250 MG DELAYED RELEASE (DEPAKOTE) TAB PO SCH (21:02)
[2017-01-26] MEDS: D5 NS 1000 ML IV SOLUTION 1,000 ML IV SCH ×2 (02:02→04:36)
[2017-01-26 03:35] VITALS: BP 129/75
[2017-01-26 05:15] LABS: MEAN PLATELET VOLUME 9.9 FL (7.4-10.4); RED BLOOD COUNT 3.48 10^6/uL (4.35-5.85); RED CELL DISTRIBUTION WIDTH 14.7 % (10.0-14.5); WHITE BLOOD COUNT 7.9 10^3/uL (4.3-11.0)
[2017-01-26 05:39] LABS: ALANINE AMINOTRANSFERASE 11 U/L (0-55); ALBUMIN 3.1 GM/DL (3.2-4.5); ANION GAP 8 MMOL/L (5-14); ASPARTATE AMINO TRANSFERASE 10 U/L (5-34); BILIRUBIN,TOTAL 0.5 MG/DL (0.1-1.0); BLOOD UREA NITROGEN 15 MG/DL (7-18); BUN/CREATININE RATIO 25; CALCIUM 8.3 MG/DL (8.5-10.1); CARBON DIOXIDE 28 MMOL/L (21-32); CHLORIDE 107 MMOL/L (98-107); CREATININE SERUM 0.61 MG/DL (0.60-1.30); GFR ESTIMATED > 60; GLUCOSE 100 MG/DL (70-105); POTASSIUM 3.4 MMOL/L (3.6-5.0); SODIUM 143 MMOL/L (135-145); TOTAL PROTEIN 5.4 GM/DL (6.4-8.2)
[2017-01-26] MEDS: LACTOBACILLUS Acidoph/Bulgar (LACTINEX/FLORANEX) TAB PO SCH ×2 (06:10→11:19)
[2017-01-26] MEDS ORDERED: PANTOPRAZOLE 40 MG (PROTONIX) TAB PO SCH (07:00)
[2017-01-26 08:00] VITALS: BP 178/80
[2017-01-26] MEDS: cefTRIAXone INJECTION 1,000 MG in NS (IVPB) 50 ML IV SCH (08:57)
[2017-01-26] MEDS: SENNA W/DOCUSATE (SENOKOT S) TABLET PO SCH (08:57)
[2017-01-26] MEDS: DIVALPROEX 250 MG DELAYED RELEASE (DEPAKOTE) TAB PO SCH (08:57)
[2017-01-26] MEDS: DABIGATRAN 150 MG (PRADAXA) CAPSULE PO SCH (08:57)
[2017-01-26] MEDS: ASPIRIN E.C. 325 MG (ECOTRIN) TABLET PO SCH (08:58)
[2017-01-26] MEDS: DIGOXIN 0.25 MG (LANOXIN) TAB PO SCH (08:58)
[2017-01-26] MEDS ORDERED: DILTIAZEM 120 MG (CARDIZEM CD) CAP PO SCH (09:00)
[2017-01-26] MEDS ORDERED: SUCR1ORA5 PO (09:41)
[2017-01-26] MEDS ORDERED: [UNRECOGNIZED DRUG - CODE] IM (09:44)
--- NOTE | 2017-01-26 09:45 | Discharge Summary ---
Diagnosis/Chief Complaint Date of Admission Jan 23, 2017 at 19:30 Date of Discharge Discharge Date: Jan 26, 2017 Discharge Time: 1100 Discharge Summary Discharge Physical Examination Allergies: Coded Allergies: No Known Drug Allergies (Verified , 12/08/14) Vitals & I&Os Vital Signs Date Time Temp Pulse Resp B/P (MAP) Pulse Ox O2 Delivery O2 Flow Rate FiO2 01/26/17 08:54 Nasal Cannula 2.00 01/26/17 08:00 100.1 102 36 178/80 92 Hospital Course Pending Labs Laboratory Tests 01/26/17 04:40: White Blood Count 7.9, Red Blood Count 3.48, Hemoglobin 10.3, Hematocrit 32, Mean Corpuscular Volume 92, Mean Corpuscular Hemoglobin 30, Mean Corpuscular Hemoglobin Concent 32, Red Cell Distribution Width 14.7, Platelet Count 211, Mean Platelet Volume 9.9, Sodium Level 143, Potassium Level 3.4, Chloride Level 107, Carbon Dioxide Level 28, Anion Gap 8, Blood Urea Nitrogen 15, Creatinine 0.61, Estimat Glomerular Filtration Rate > 60, BUN/Creatinine Ratio 25, Glucose Level 100, Calcium Level 8.3, Total Bilirubin 0.5, Aspartate Amino Transf (AST/ SGOT) 10, Alanine Aminotransferase (ALT/SGPT) 11, Alkaline Phosphatase 54, Total Protein 5.4, Albumin 3.1 Discharge Instructions to patient/family Please see electonic discharge instructions given to patient. Discharge Medications Reviewed and agree with Discharge Medication list on patient's Discharge Instruction sheet Clinical Quality Measures AMI/AHF: ASA po Prior to arrival: No DVT/VTE Risk/Contraindication: Risk Factor Score Per Nursin RFS Level Per Nursing on Admit: 4+=Very High SOWMYA LOZA MD Jan 26, 2017 09:45
== END 2017-01-26 12:15 | disposition hospice, inpatient (51) | DRG 690 ==
LOC: EDUNIT# 17:32 → ER 17:33 → 4TH 19:30 → ENPENDDIS 01-26 11:00
PROVIDERS: ADMIT Family Medicine; ATTEND Family Medicine
DX: N39.0 Urinary tract infection, site not specified (principal); R07.9 Chest pain, unspecified; R00.1 Bradycardia, unspecified; I48.2 Chronic atrial fibrillation; D64.9 Anemia, unspecified; I25.10 Atherosclerotic heart disease of native coronary artery without angina pectoris; I10 Essential (primary) hypertension; F03.90 Unspecified dementia, unspecified severity, without behavioral disturbance, psychotic disturbance, mood disturbance, and anxiety; Z66 Do not resuscitate; K21.9 Gastro-esophageal reflux disease without esophagitis; E78.00 Pure hypercholesterolemia, unspecified; M19.91 Primary osteoarthritis, unspecified site; R53.1 Weakness; F32.9 Major depressive disorder, single episode, unspecified; Z85.820 Personal history of malignant melanoma of skin
CPT/HCPCS: 36415; 71010; 74176; 80048; 80053; 80061; 80162; 81000; 83605; 83735; 83874; 84484; 85025; 85027; 85610; 85730; 86850; 86900; 86901; 86920; 87040; 87077; 87088; 87186; 93005; 93041; 96365

== ENCOUNTER → 2017-02-03 | Outpatient (CLI) | payer MEDICARE, OTHER, MEDICAID ==
[~2017-02-03] MED LIST changes: +ACET325T38 PO; +ALPR0.25 PO; +DIVA250T4 PO; +LACT-35 PO; +LOPE-134 PO; +SUCR1ORA5 PO; +[UNRECOGNIZED DRUG - CODE] IM
== END ==
LOC: CVS 19:18
PROVIDERS: ATTEND Family Medicine
DX: R19.5 Other fecal abnormalities (principal)
CPT/HCPCS: 87045; 87046; 87324; 87449; 87493

== ENCOUNTER → 2017-02-03 | Outpatient (CLI) | payer MEDICARE, OTHER, MEDICAID ==
--- NOTE | 2017-02-03 18:35 | Diagnostic Imaging Report ---
EXAMINATION: KUB. INDICATION: Loose stool. Constipation. FINDINGS: There is a moderate amount of fecal material in the right colon and the rectum. No significantly dilated bowel loops are seen. Surgical clips in the upper right abdomen are seen. There is mild left convexity scoliotic curvature in the lumbar spine. Degenerative sclerotic changes of SI joints and the symphysis pubis seen. IMPRESSION: Moderate amounts of fecal material seen in the colon and rectum. Dictated by: Dictated on workstation # [id number]
== END ==
LOC: RAD 12:58
PROVIDERS: ATTEND Family Medicine
DX: K59.00 Constipation, unspecified (principal)
CPT/HCPCS: 74000

== ENCOUNTER → 2018-02-01 | Outpatient (CLI) | payer MEDICARE, OTHER, MEDICAID ==
[~2018-02-01] MED LIST changes: +DIVA-74 PO; -DIVA250T4 PO
--- NOTE | 2018-02-01 17:17 | Diagnostic Imaging Report ---
INDICATION: Abdominal pain. FINDINGS: There is diffuse gaseous distention of the colon suspect for colonic ileus. There also appears to be moderate amount of retained fecal material which may reflect some degree of constipation particularly in the proximal colon. There are surgical clips in right upper quadrant. IMPRESSION: 1. Diffuse gaseous distention of the colon suspect for colonic ileus although obstruction cannot be entirely excluded. Recommend clinical correlation, and, if warranted, followup with Gastrografin enema. 2. Moderate amount of retained fecal material likely reflecting some degree of constipation. Dictated by: Dictated on workstation # [id number]
== END ==
LOC: RAD 13:06
PROVIDERS: ATTEND Nurse Practitioner Family
DX: R14.0 Abdominal distension (gaseous) (principal); R10.9 Unspecified abdominal pain
CPT/HCPCS: 74019